=== PATIENT | male | born 1940 | race Caucasian/White ===

== ENCOUNTER 2018-04-24 10:27 | Outpatient (CLI) | payer MEDICARE, SELFPAY ==
[2018-04-24 13:06] LABS: Hemoglobin A1C 7.7 % (4.5-6.2)
[2018-04-24 13:08] LABS: CREATININE 1.26 mg/dL (0.70-1.30); Cholesterol 200 mg/dL (50-200); Estimated GFR 55.79 (mL/min/1.73m2); HDL Cholesterol 44 mg/dL (40-60); LDL CHOLESTEROL 150 mg/dL (<100); Potassium 4.9 mmol/L (3.5-5.1); Triglyceride 77 mg/dL (30-150)
== END 2018-04-24 10:47 ==
PROVIDERS: PCP Family Medicine; Visit Provider Family Medicine
DX: E11.9 Type 2 diabetes mellitus without complications (principal); I10 Essential (primary) hypertension; E78.5 Hyperlipidemia, unspecified; J06.9 Acute upper respiratory infection, unspecified
CPT/HCPCS: 36415; 80061; 83721; 82565; 83036; 84132

== ENCOUNTER 2018-09-27 09:24 | Outpatient (CLI) | payer MEDICARE, SELFPAY ==
[2018-09-27 13:11] LABS: Hemoglobin A1C 7.2 % (4.5-6.2)
== END 2018-09-27 09:44 ==
PROVIDERS: PCP Family Medicine; Visit Provider Family Medicine
DX: E11.9 Type 2 diabetes mellitus without complications (principal)
CPT/HCPCS: 36415; 83036

== ENCOUNTER 2019-04-18 11:40 | Outpatient (CLI) | payer MEDICARE, SELFPAY ==
[2019-04-18 13:47] LABS: TSH (W/Ref FT4) 1.33 uIU/mL (0.36-3.74); Vitamin B12 262 pg/mL (193-986)
[2019-04-21 11:53] LABS: Syphilis Serology (RPR) Negative (Negative)
== END 2019-04-18 12:00 ==
PROVIDERS: PCP Family Medicine; Visit Provider Family Medicine
DX: I10 Essential (primary) hypertension (principal); R41.89 Other symptoms and signs involving cognitive functions and awareness; R46.89 Other symptoms and signs involving appearance and behavior
CPT/HCPCS: 36415; 82607; 84443; 86592

== ENCOUNTER 2019-11-10 14:44 | Outpatient (CLI) | payer MEDICARE, OTHER, SELFPAY ==
--- NOTE | 2019-11-10 15:30 | DI.RAD_ITS ---
EXAM: XR TIB/FIB RT CLINICAL HISTORY: right leg and ankle pain since fall,m79.604,[id number].xxxa. TECHNIQUE: 2D digital imaging was performed. COMPARISON: No exams were available for comparison FINDINGS: BONES: No acute fracture is present. No bony destructive lesion is seen. Mild degenerative changes ar e seen at the knee. There is chondrocalcinosis at the femoral tibial joint. SOFT TISSUE: Vascular calcifications are seen in the soft tissues. There is soft tissue swelling avelino und the ankle. IMPRESSION: No acute fracture or dislocation. DATA REPOSITORY: RADIATION DOSE DELIVERED:
--- NOTE | 2019-11-10 15:30 | DI.RAD_ITS ---
EXAM: XR ANKLE RT COMPLETE CLINICAL HISTORY: right leg and ankle pain since fall. TECHNIQUE: 2D digital imaging was performed. COMPARISON: CR XR TIB/FIB RT from 11/10/2019 FINDINGS: BONES: No acute fracture or dislocation is present. There are enthesophytes at the Achilles insertio n site and the plantar fascia. JOINTS: The ankle mortise is normally aligned. SOFT TISSUE: Moderate swelling around the ankle. IMPRESSION: No acute fracture or dislocation. DATA REPOSITORY: RADIATION DOSE DELIVERED:
== END 2019-11-10 15:04 ==
PROVIDERS: PCP Family Medicine; Visit Provider Nurse Practitioner Family
DX: M79.604 Pain in right leg (principal); M25.571 Pain in right ankle and joints of right foot; M79.89 Other specified soft tissue disorders; W19.XXXA Unspecified fall, initial encounter; G45.9 Transient cerebral ischemic attack, unspecified
CPT/HCPCS: 73590; 73610

== ENCOUNTER 2020-01-26 13:15 | Outpatient (REF) | payer MEDICARE, OTHER, SELFPAY ==
[2020-01-26 13:47] LABS: Hemoglobin A1C 7.2 % (3.8-5.6)
[2020-01-26 13:49] LABS: CREATININE 1.25 mg/dL (0.70-1.30); Calculated LDL 137 mg/dL (<100); Cholesterol 199 mg/dL (<200); Estimated GFR 56.01 (mL/min/1.73m2); HDL Cholesterol 43 mg/dL (40-60); Potassium 4.3 mmol/L (3.5-5.1); Triglyceride 97 mg/dL (<150)
[2020-01-29 10:00] LABS: Vitamin B12 171 pg/mL (211-911)
[2020-01-31 13:12] LABS: Methylmalonic Acid 0.23 nmol/mL (<=0.40)
== END 2020-01-26 13:35 ==
LOC: LBN 13:15
PROVIDERS: PCP Family Medicine; Visit Provider Family Medicine
DX: E11.65 Type 2 diabetes mellitus with hyperglycemia (principal); E78.5 Hyperlipidemia, unspecified; E53.8 Deficiency of other specified B group vitamins
CPT/HCPCS: 80061; 80186; 82565; 82607; 83036; 84132

== ENCOUNTER 2020-11-10 08:58 | Outpatient (REF) | payer MEDICARE, OTHER, SELFPAY ==
[2020-11-10 14:32] LABS: Hemoglobin A1C 6.4 % (<5.7)
[2020-11-10 14:53] LABS: Anion Gap 10.1 mmol/L (3-11); BUN 22 mg/dL (7-18); CO2 26.9 mmol/L (21.0-32.0); CREATININE 1.2 mg/dL (0.70-1.30); Calcium 9.1 mg/dL (8.5-10.1); Calculated LDL 131 mg/dL (<100); Chloride 108 mmol/L (98-107); Cholesterol 192 mg/dL (<200); Estimated GFR 58.56 (mL/min/1.73m2); Glucose 122 mg/dL (74-106); HDL Cholesterol 47 mg/dL (40-60); Potassium 4.5 mmol/L (3.5-5.1); Sodium 145 mmol/L (136-145); Triglyceride 70 mg/dL (<150); Vitamin B12 162 pg/mL (193-986)
== END 2020-11-10 08:59 | disposition home or self-care (01) ==
LOC: LBN 08:58
PROVIDERS: PCP Family Medicine; Visit Provider Family Medicine
DX: E78.5 Hyperlipidemia, unspecified (principal); R73.9 Hyperglycemia, unspecified; D64.9 Anemia, unspecified; R41.3 Other amnesia
CPT/HCPCS: 80048; 80061; 82607; 83036

== ENCOUNTER 2021-07-05 13:05 | Emergency (ER) | payer MEDICARE, OTHER, SELFPAY ==
[2021-07-05 13:13] VITALS: BP 164/96; PULSE 99; RESP 18; O2SAT 99
--- NOTE | 2021-07-05 13:15 | RT.EKG_ITS ---
APPROVED REPORT Exam: Resting ECG Reason for Exam: AMS Patient Location: E HR:93 bpm ECG Measurements Heart Rate 93 AXIS TN 170 P 55 QRSd 124 QRS 51 QT 374 T -28 QTc 466 Conclusion Sinus rhythm...normal P axis, V-rate 60- 99 Right bundle branch block...QRSd>120, terminal axis(90,270) Inferior infarct, age indeterminate...Q>35mS, T neg, II III aVF Physician: no stemi, RBBB, no prior for comparison
[2021-07-05 13:16] VITALS: RESP 18
--- NOTE | 2021-07-05 13:30 | DI.CT_ITS ---
Exam(s) CT HEAD WO EXAM: CT HEAD WO CLINICAL HISTORY: ams. TECHNIQUE: Imaging Protocol: Axial computed tomography images with coronal and sagittal reformatted images were created and reviewed COMPARISON: No exams were available for comparison FINDINGS: There is moderate generalized cerebral atrophy. No evidence of acute intracranial hemorrhage, mass effect, or midline shift. The orbital structures are unremarkable. The temporal bone structures appear intact. Calvarium: Normal. Visualized Paranasal sinuses/Mastoids: Clear. IMPRESSION: No evidence of acute intracranial process. RADIATION DOSE DELIVERED: 864.99mGy.cm Total DLP 864.99mGy.cm Total DLP 40.22mGy CTDIvol DATA REPOSITORY: All CT scans at this facility are submitted to the National Radiology Data Registry (NRDR) Dose Index Registry (DIR) with the [employer] (ACR). RADIATION OPTIMIZATION: All CT scans at this facility use at least one of these dose optimization te chniques: automated exposure control; mA and/or kV adjustment per patient size (includes targeted exa ms where dose is matched to clinical indication); or iterative reconstruction.
[2021-07-05 13:41] LABS: Abs Immature Grans 0.02 10^3/uL (0.0-0.06); Absolute Basophil Count 0.04 10^3/uL (0.0-0.2); Absolute Eosinophil Count 0.04 10^3/uL (0.0-0.7); Absolute Lymphocyte Count 1.33 10^3/uL (1.2-3.4); Absolute Monocyte Count 0.44 10^3/uL (0.1-0.8); Absolute Neutrophil Count 3.55 10^3/uL (1.2-6.7); Basophils % 0.7; Eosinophils % 0.7; HCT 45.7 % (40.0-50.0); HGB 15.5 g/dL (13.5-17.5); Immature Grans % 0.4; Lymphocytes % 24.5; MCH 30.2 pg (27.0-33.0); MCHC 33.9 % (32.0-36.0); MCV 88.9 fL (80-95); MPV 9.9 fL (8.0-11.0); Monocytes % 8.1; Neutrophils % 65.6; Nucleated RBC 0 %; Platelet Count 185 10^3/uL (130-400); RBC 5.14 10^6/uL (4.36-5.78); RDW 12.3 % (11.8-14.1); RDW-SD 40.3 fL; WBC 5.42 10^3/uL (4.4-10.8)
[2021-07-05 13:43] LABS: Bilirubin Negative (Negative); Blood Negative (Negative); Clarity Clear (Clear); Glucose 100 mg/dL (Negative); Ketones Trace mg/dL (Negative); Leukocyte Esterase Negative (Negative); Nitrite Negative (Negative); pH 6.5 (5-8)
[2021-07-05 14:00] LABS: Bacteria Rare HPF (Negative); Crystals Negative HPF (Negative); Epithelial Cells Rare HPF (Negative); Mucus Moderate (Negative); RBC 0-2 HPF (0-2); WBC 0-2 HPF (0-5)
[2021-07-05 14:01] LABS: C & S Indicated? No; Casts 5-10 Hyaline LPF (Negative)
[2021-07-05 14:18] LABS: ALT 25 U/L (16-63); AST 18 U/L (15-37); Albumin 4.4 g/dL (3.4-5.0); Alkaline Phosphatase 74 U/L (46-116); Anion Gap 8.5 mmol/L (3-11); BUN 24 mg/dL (7-18); Bilirubin, Total 1.1 mg/dL (0.2-1.0); CO2 28.5 mmol/L (21.0-32.0); CREATININE 1.5 mg/dL (0.70-1.30); Calcium 9.8 mg/dL (8.5-10.1); Chloride 105 mmol/L (98-107); Estimated GFR 45.26 (mL/min/1.73m2); Glucose 160 mg/dL (74-106); Sodium 142 mmol/L (136-145); TSH (W/Ref FT4) 1.76 uIU/mL (0.36-3.74); Total Protein 7.3 g/dL (6.4-8.2); Troponin I < 50 ng/L (<or=60)
[2021-07-05] MEDS: Normal Saline 1,000 ML 1000 ML IV (14:58)
--- NOTE | 2021-07-05 14:59 | W.ED.GENAD ---
Discharge Plan Disposition Patient Disposition: HOME Condition: Stable Discharge Details Clinical Impression: Altered mental status Primary Care Provider: Jairo Degroot ED Provider: Nando Sorenson Home Meds and New Rx's Prescriptions: Continued tadalafil [Cialis] 20 mg tablet 10 - 20 mg PO DAILY PRN (Reason: sexual activity) Qty: 10 RF: 0 sildenafil (pulm.hypertension) 20 mg tablet 20 - 100 mg PO DAILY PRN (Reason: sexual activity) Qty: 30 RF: 5 aspirin [Aspir-81] 81 MG tablet,delayed release (DR/EC) 81 mg PO DAILY Qty: 90 RF: 3 cyanocobalamin (vitamin B-12) 1,000 mcg capsule 1,000 mcg PO DAILY Qty: 90 RF: 3 benazepril 10 mg tablet 10 mg PO DAILY Qty: 90 RF: 4 (DME) blood sugar diagnostic Strip 1 ea Miscellaneous DAILY Qty: 100 RF: 3 (DME) blood-glucose meter [[employer] Ultra2 Meter] Kit See Rx Instructions .ROUTE .MEDSUPPLY Qty: 1 RF: 0 (DME) lancets [OneTouch [employer] Lancets] 33 gauge misc 1 ea Miscellaneous DAILY Qty: 100 RF: 3 metformin 750 mg tablet extended release 24 hr 750 mg PO DAILY Qty: 90 RF: 4 simvastatin 10 mg tablet 10 mg PO HS Qty: 90 RF: 4 Discharge Instructions Instructions: Altered Mental Status (ED) Additional Instructions: Today at this time your laboratory values and CT imaging are all unremarkable for any obvious emergent process. Please watch for new or worsening symptoms and return to the ER for any concerns. Lastly, I strongly recommend reaching out to your primary care provider to discuss your ER visit, ongoing symptoms, need for outpatient reevaluation Discharge Data Discharge Date/Time-TO BE ENTERED AT DEPARTURE: 07/05/21 16:03 Medical Decision Making This is a 80-year-old gentleman who yesterday left his house without telling anyone, was [place] the state in a gas station after his car broke down. Apparently he has had progressive worsening memory impairment and mood swings but the was more atypical than baseline. The family states that they are concerned he may have a UTI which would explain his sporadic behavior. He lives at home with his significant other and does not wish to be hospitalized but is agreeable to a medical work-up. At this time he is at his baseline. He is pleasantly confused but any obvious focal neurodeficit. Given his presentation will obtain head CT we will also obtain a troponin and EKG and routine screening laboratory values. CT imaging of the brain is unremarkable Laboratory values do not reveal any obvious emergent process. No evidence of leukocytosis or anemia. Electrolytes are normal. Creatinine slightly worse at 1.5, given 1 L IV fluid. Troponin less than 50. Glucose 160 magnesium 2.0, urinalysis without evidence of infection Discussed work-up with patient and family member. They have no additional questions or concerns and are requesting discharge home. We did discuss the importance of contacting his primary care provider to discuss his ongoing symptoms and unusual behavior. We also discussed that observation admission at this time could be arranged given his altered mental status yesterday as well as the importance of pursuing outpatient MRI for further evaluation. A request was made that our care management team reach out to the patient's [id number] to help with potential outpatient resources. At time of discharge patient is at baseline mental status per family. He is awake, alert, pleasantly confused, without any questions or concerns. Strict discharge and return precautions were provided This documentation was generated using [employer] dictation system, please disregard any oddities of phrase or misspellings. Medical Records Medical records reviewed: Yes I reviewed the patient's medical records. Imaging Data Radiologic Study: Attestation: I personally reviewed and interpreted this imaging study as follows: Imaging: CT Scan Radiologist's impression: Exam(s) CT HEAD WO EXAM: CT HEAD WO CLINICAL HISTORY: ams. TECHNIQUE: Imaging Protocol: Axial computed tomography images with coronal and sagittal reformatted images were created and reviewed COMPARISON: No exams were available for comparison FINDINGS: There is moderate generalized cerebral atrophy. No evidence of acute intracranial hemorrhage, mass effect, or midline shift. The orbital structures are unremarkable. The temporal bone structures appear intact. Calvarium: Normal. Visualized Paranasal sinuses/Mastoids: Clear. IMPRESSION: No evidence of acute intracranial process. Lab Data Lab results reviewed: Yes I reviewed the patient's lab results. Labs: Laboratory Tests Range/Units 07/05/21 07/05/21 07/05/21 13:20 13:20 13:37 WBC (4.4-10.8) 10^3/uL 5.42 RBC (4.36-5.78) 10^6/uL 5.14 Hgb (13.5-17.5) g/dL 15.5 Hct (40.0-50.0) % 45.7 MCV (80-95) fL 88.9 MCH (27.0-33.0) pg 30.2 MCHC (32.0-36.0) % 33.9 RDW (11.8-14.1) % 12.3 Plt Count (130-400) 10^3/uL 185 MPV (8.0-11.0) fL 9.9 Immature Gran % 0.4 Neutrophils % 65.6 Lymphocytes % 24.5 Monocytes % 8.1 Eosinophils % 0.7 Basophils % 0.7 Nucleated RBC % % 0 Absolute Neutrophils (1.2-6.7) 10^3/uL 3.55 Absolute Lymphocytes (1.2-3.4) 10^3/uL 1.33 Absolute Monocytes (0.1-0.8) 10^3/uL 0.44 Absolute Eosinophils (0.0-0.7) 10^3/uL 0.04 Absolute Basophils (0.0-0.2) 10^3/uL 0.04 Sodium (136-145) mmol/L 142 Potassium (3.5-5.1) mmol/L 4.0 Chloride (98-107) mmol/L 105 Carbon Dioxide (21.0-32.0) mmol/L 28.5 Anion Gap (3-11) mmol/L 8.5 BUN (7-18) mg/dL 24 H Creatinine (0.70-1.30) mg/dL 1.5 H Estimated GFR/1.73 m2 (mL/min/1.73m2) 45.26 Glucose (74-106) mg/dL 160 H Calcium (8.5-10.1) mg/dL 9.8 Magnesium (1.8-2.4) mg/dL 2.0 Total Bilirubin (0.2-1.0) mg/dL 1.1 H AST (15-37) U/L 18 ALT (16-63) U/L 25 Alkaline Phosphatase (46-116) U/L 74 Troponin I (<or=60) ng/L < 50 Total Protein (6.4-8.2) g/dL 7.3 Albumin (3.4-5.0) g/dL 4.4 TSH (0.36-3.74) uIU/mL 1.76 Urine Color (Yellow) Yellow Urine Clarity (Clear) Clear Urine pH (5-8) 6.5 Ur Specific [place] (1.005-1.025) 1.020 Urine Protein (Negative) mg/dL Trace H Urine Ketones (Negative) mg/dL Trace H Urine Blood (Negative) Negative Urine Nitrite (Negative) Negative Urine Bilirubin (Negative) Negative Urine Urobilinogen (Up TO 0.2) EU/dL 1.0 H Ur Leukocyte Esterase (Negative) Negative Urine RBC (0-2) HPF 0-2 Urine WBC (0-5) HPF 0-2 Ur Epithelial Cells (Negative) HPF Rare Urine Crystals (Negative) HPF Negative Urine Bacteria (Negative) HPF Rare Urine Casts (Negative) LPF 5-10 Hyaline Urine Mucus (Negative) Moderate Ur Culture Indicated? No Urine Glucose (Negative) mg/dL 100 Range/Units 07/05/21 16:21 WBC (4.4-10.8) 10^3/uL RBC (4.36-5.78) 10^6/uL Hgb (13.5-17.5) g/dL Hct (40.0-50.0) % MCV (80-95) fL MCH (27.0-33.0) pg MCHC (32.0-36.0) % RDW (11.8-14.1) % Plt Count (130-400) 10^3/uL MPV (8.0-11.0) fL Immature Gran % Neutrophils % Lymphocytes % Monocytes % Eosinophils % Basophils % Nucleated RBC % % Absolute Neutrophils (1.2-6.7) 10^3/uL Absolute Lymphocytes (1.2-3.4) 10^3/uL Absolute Monocytes (0.1-0.8) 10^3/uL Absolute Eosinophils (0.0-0.7) 10^3/uL Absolute Basophils (0.0-0.2) 10^3/uL Sodium (136-145) mmol/L Potassium (3.5-5.1) mmol/L Chloride (98-107) mmol/L Carbon Dioxide (21.0-32.0) mmol/L Anion Gap (3-11) mmol/L BUN (7-18) mg/dL Creatinine (0.70-1.30) mg/dL Estimated GFR/1.73 m2 (mL/min/1.73m2) Glucose (74-106) mg/dL Calcium (8.5-10.1) mg/dL Magnesium (1.8-2.4) mg/dL Total Bilirubin (0.2-1.0) mg/dL AST (15-37) U/L ALT (16-63) U/L Alkaline Phosphatase (46-116) U/L Troponin I (<or=60) ng/L Cancelled Total Protein (6.4-8.2) g/dL Albumin (3.4-5.0) g/dL TSH (0.36-3.74) uIU/mL Urine Color (Yellow) Urine Clarity (Clear) Urine pH (5-8) Ur Specific [place] (1.005-1.025) Urine Protein (Negative) mg/dL Urine Ketones (Negative) mg/dL Urine Blood (Negative) Urine Nitrite (Negative) Urine Bilirubin (Negative) Urine Urobilinogen (Up TO 0.2) EU/dL Ur Leukocyte Esterase (Negative) Urine RBC (0-2) HPF Urine WBC (0-5) HPF Ur Epithelial Cells (Negative) HPF Urine Crystals (Negative) HPF Urine Bacteria (Negative) HPF Urine Casts (Negative) LPF Urine Mucus (Negative) Ur Culture Indicated? Urine Glucose (Negative) mg/dL ECG Data Attestation: I personally reviewed and interpreted this ECG (s) as follows: Interpretation: Please see official report by Dr. Nelson. Sinus rhythm, ventricular rate of 93. Right bundle branch block. No STEMI HPI General Mode of arrival: ambulatory. Date/Time Provider Initiated Documentation: 07/05/21 13:20. Limitations to Documentation: no limitations. Information obtained by: patient and family (Daughter in law). HPI Narrative: This is a 80-year-old gentleman, with past medical history of memory impairment, diabetes, high retention, chronic low back pain, presenting to the ER with his [id number] for evaluation of altered mental status. Apparently when the family came home yesterday there was a note stating that he was taking the dog for a ride however the dog was home and the patient did not come home last night. He was subsequently found today across [facility] at a gas station after his vehicle broke down, family contacted and he was brought back home. His [id number]-ser reports that he is at baseline mental status now but questions if given his increase confusion if he potentially has a UT. Patient is pleasant, has no acute concerns or complaints. Denies recent illness or trauma. Denies headache, visual changes, neck pain, chest pain, shortness of breath, fever, abdominal pain, nausea, vomiting, change in bowel or bladder function, pain or swelling in his extremities. He is unable to really give me any details regarding what happened over the past 24 hours. Family reports that his overall mental status has declined over the past year, he has had some increased agitation and mood swings as well. Denies any focal deficit or weakness. Related Data Home Medications Medication Instructions Recorded Confirmed aspirin [Aspir-81] 81 mg PO DAILY #90 tab-cap 02/17/13 04/30/20 tadalafil 20 mg tablet 10 - 20 mg PO DAILY PRN #10 tab-cap 09/27/18 04/30/20 sildenafil (pulm.hypertension) 20 20 - 100 mg PO DAILY PRN #30 tab 04/18/19 04/30/20 mg tablet cyanocobalamin (vitamin B-12) 1,000 mcg PO DAILY #90 cap 01/29/20 04/30/20 1,000 mcg capsule benazepril 10 mg tablet 10 mg PO DAILY #90 tab-cap 07/12/20 blood sugar diagnostic #100 strip 07/12/20 blood-glucose meter #1 ea 07/12/20 lancets 33 gauge #100 ea 07/12/20 metformin 750 mg tablet,extended 750 mg PO DAILY #90 tab-cap 07/12/20 release 24 hr simvastatin 10 mg tablet 10 mg PO HS #90 tab-cap 07/12/20 Previous Rx's Medication Instructions Recorded tadalafil 20 mg tablet 10 - 20 mg PO DAILY PRN #10 tab-cap 09/27/18 sildenafil (pulm.hypertension) 20 20 - 100 mg PO DAILY PRN #30 tab 04/18/19 mg tablet cyanocobalamin (vitamin B-12) 1,000 mcg PO DAILY #90 cap 01/29/20 1,000 mcg capsule benazepril 10 mg tablet 10 mg PO DAILY #90 tab-cap 07/12/20 blood sugar diagnostic #100 strip 07/12/20 blood-glucose meter #1 ea 07/12/20 lancets 33 gauge #100 ea 07/12/20 metformin 750 mg tablet,extended 750 mg PO DAILY #90 tab-cap 07/12/20 release 24 hr simvastatin 10 mg tablet 10 mg PO HS #90 tab-cap 07/12/20 Allergies Allergy/AdvReac Type Severity Reaction Status Date / Time No Known Allergies Allergy Verified 07/05/21 13:15 General Stated Complaint: AMS/LOC CHENTE: 2 Review of Systems Constitutional Constitutional: Denies fatigue, Denies fever(s) and Denies headache(s) Eyes Eyes: Denies change in vision ENT Ears, Nose, Mouth, and Throat: Denies headache(s) and Denies neck pain Cardiovascular Cardiovascular: Denies chest pain and Denies dyspnea Respiratory Respiratory: Denies cough and Denies dyspnea Gastrointestinal Gastrointestinal: Denies abdominal pain, Denies nausea and Denies vomiting Genitourinary Genitourinary: Denies dysuria Musculoskeletal Musculoskeletal: Denies neck pain Integumentary/Breasts Skin/Breast: Denies rash Neurologic Neurologic: Denies headache(s) Psychiatric Psychiatric: Reports confusion (Baseline per family) Endocrine Endocrine: Denies fatigue PFSH All Active Problems Altered mental status (Acute) Low serum vitamin B12 (Acute) Memory impairment (Acute) History of lumbar laminectomy (Acute 08/20/14) Status post rotator cuff repair (Acute) Diabetes mellitus (Chronic) Type 2 diabetes mellitus (Acute 02/11/13) Dysphagia (Acute 08/20/14) intermittent for years [facility] eval, neg EGD and Ba swallow Essential hypertension (Acute 02/11/13) Hyperlipidemia (Acute 08/18/13) Low back pain (Acute 02/11/13) lumbar laminectomy 1959' Colon cancer screening (Acute) Surgical History Colonoscopy - MAC 07/17/14 PARTIAL LAMINECTOMY (~1962) L3-4 DISCS Rotator Cuff Repair RIGHT Sigmoidoscopy (~06/2007) Family History FAMILY HISTORY Essential hypertension Personal history of malignant neoplasm [place] Cerebral infarction Cerebral artery occlusion Mother Essential hypertension Stroke Skin cancer Father Essential hypertension Asthma Sister , 72 Breast cancer Brother No problems noted. Maternal Grandfather Alcohol abuse Heart disease Paternal Grandfather Alcohol abuse Maternal Grandmother Diabetes Heart disease Paternal Grandmother No problems noted. Son No problems noted. Son No problems noted. Son No problems noted. Social History Smoking/Tobacco Use Status: Former Tobacco Use Tobacco: How many years used: 20 Second Hand Exposure: Yes Smoking risk assessment performed?: Yes Alcohol Intake: current Alcohol Intake frequency: holidays/special occasions only Alcohol type: wine Drug use: Never Substance use type: does not use Caregiver/Support person: No Household members: spouse Housing: house Communication Needs: None Do you need help understanding health information?: Rarely Pets and animals: Yes Pets and animals: cat(s) and dog(s) Sexually active: No Do you think of yourself as: straight/heterosexual Current gender identity: male What is your relationship status?: How often do you talk on the phone with friends or family?: once per week How often do you get together with friends or relatives?: once per week How often do you attend rastafarian or episcopal services?: 4 or more times per year Do you belong to any clubs or organized social groups?: no Panel score (0-1 are the most socially isolated patients): 2 What type of physical activity do you participate in: weight lifting Duration: 15-30 minutes/day Frequency: 5-6 times per week Johana/Pentecostalism: Anabaptist Special johana needs: No Seatbelt use: always Drive intox or ride w/intox 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 Additional Social history: Recent increase in AMS and agitation Exam Const General: cooperative, healthy appearing, comfortable and no acute distress Orientation: alert, awake, oriented to person, oriented to place and confused (Unaware of date or the president) Other: Mental baseline status per family [facility] Head: normal to inspection, normocephalic and atraumatic Face and sinus: normal facial exam Mouth: moist mucous membranes Throat: posterior oropharynx normal Eyes General: appearance normal, both eyes and all related structures Conjunctivae: conjunctivae normal Neck Neck: normal visual inspection, full ROM, no meningeal signs, trachea midline, supple and nontender Resp Effort & Inspection: normal respiratory effort and able to speak in complete sentences Auscultation: not clear to auscultation bilaterally Cardio Rate: regular rate Rhythm: regular rhythm GI Palpation: soft, not firm, no guarding, no pulsatile masses and nontender Back/Spine/Pelvis Back: no CVA tenderness and No back tenderness Skin General skin exam: no rashes or lesions noted Neuro General: patient alert, patient awake, moves all extremities and no focal motor deficits Cranial Nerves: CN's II-XI intact bilaterally Cognition: normal cognition Speech: speech normal Gait: normal gait Motor: muscle tone normal throughout, strength 5/5 throughout, no pronator drift, no movement abnormalities noted and no fasciculations Sensory Exam: no sensory deficits noted Coordination: [id number] test normal and Does not sway with eyes open Extrem General: normal to inspection, full ROM, capillary refill normal, no pedal edema and no calf tenderness Psych Appearance: grossly normal Mental Status: mental status grossly normal Course Vital Signs Vital signs: Vital Signs Pulse 99 H 07/05/21 13:13 Respiratory Rate 18 07/05/21 13:13 Blood Pressure 164/96 H 07/05/21 13:13 Pulse Oximetry 99 07/05/21 13:13 Pulse 99 H 07/05/21 13:13 Respiratory Rate 18 07/05/21 13:16 Respiratory Effort Non-Labored 07/05/21 13:16 Respiratory Depth Normal 07/05/21 13:16 Respiratory Pattern Normal 07/05/21 13:16 Blood Pressure 164/96 H 07/05/21 13:13 Pulse Oximetry 99 07/05/21 13:13 Oxygen Delivery Method Room Air 07/05/21 13:13 Oxygen Flow Rate 0 07/05/21 13:13 Pain Level 0 07/05/21 13:13 Lab/Test Results Lab/Test Results: Laboratory Tests Range/Units 07/05/21 07/05/21 07/05/21 13:20 13:20 13:37 WBC (4.4-10.8) 10^3/uL 5.42 RBC (4.36-5.78) 10^6/uL 5.14 Hgb (13.5-17.5) g/dL 15.5 Hct (40.0-50.0) % 45.7 MCV (80-95) fL 88.9 MCH (27.0-33.0) pg 30.2 MCHC (32.0-36.0) % 33.9 RDW (11.8-14.1) % 12.3 Plt Count (130-400) 10^3/uL 185 MPV (8.0-11.0) fL 9.9 Immature Gran % 0.4 Neutrophils % 65.6 Lymphocytes % 24.5 Monocytes % 8.1 Eosinophils % 0.7 Basophils % 0.7 Nucleated RBC % % 0 Absolute Neutrophils (1.2-6.7) 10^3/uL 3.55 Absolute Lymphocytes (1.2-3.4) 10^3/uL 1.33 Absolute Monocytes (0.1-0.8) 10^3/uL 0.44 Absolute Eosinophils (0.0-0.7) 10^3/uL 0.04 Absolute Basophils (0.0-0.2) 10^3/uL 0.04 Sodium (136-145) mmol/L 142 Potassium (3.5-5.1) mmol/L 4.0 Chloride (98-107) mmol/L 105 Carbon Dioxide (21.0-32.0) mmol/L 28.5 Anion Gap (3-11) mmol/L 8.5 BUN (7-18) mg/dL 24 H Creatinine (0.70-1.30) mg/dL 1.5 H Estimated GFR/1.73 m2 (mL/min/1.73m2) 45.26 Glucose (74-106) mg/dL 160 H Calcium (8.5-10.1) mg/dL 9.8 Magnesium (1.8-2.4) mg/dL 2.0 Total Bilirubin (0.2-1.0) mg/dL 1.1 H AST (15-37) U/L 18 ALT (16-63) U/L 25 Alkaline Phosphatase (46-116) U/L 74 Troponin I (<or=60) ng/L < 50 Total Protein (6.4-8.2) g/dL 7.3 Albumin (3.4-5.0) g/dL 4.4 TSH (0.36-3.74) uIU/mL 1.76 Urine Color (Yellow) Yellow Urine Clarity (Clear) Clear Urine pH (5-8) 6.5 Ur Specific [place] (1.005-1.025) 1.020 Urine Protein (Negative) mg/dL Trace H Urine Ketones (Negative) mg/dL Trace H Urine Blood (Negative) Negative Urine Nitrite (Negative) Negative Urine Bilirubin (Negative) Negative Urine Urobilinogen (Up TO 0.2) EU/dL 1.0 H Ur Leukocyte Esterase (Negative) Negative Urine RBC (0-2) HPF 0-2 Urine WBC (0-5) HPF 0-2 Ur Epithelial Cells (Negative) HPF Rare Urine Crystals (Negative) HPF Negative Urine Bacteria (Negative) HPF Rare Urine Casts (Negative) LPF 5-10 Hyaline Urine Mucus (Negative) Moderate Ur Culture Indicated? No Urine Glucose (Negative) mg/dL 100
== END 2021-07-05 16:03 | disposition home or self-care (01) ==
PROVIDERS: Emergency Provider Physician Assistant; PCP Family Medicine
DX: R41.82 Altered mental status, unspecified (principal); E11.9 Type 2 diabetes mellitus without complications; R79.89 Other specified abnormal findings of blood chemistry
CPT/HCPCS: 36415; 36416; 80053; 82962; 93005; 96360; 99284; 70450; 81003; 81015; 83735; 84443; 84484; 85025; 93010

== ENCOUNTER 2021-07-18 14:41 | Outpatient (REF) | payer MEDICARE, OTHER, SELFPAY ==
[2021-07-18 13:40] LABS: Hemoglobin A1C 6.1 % (<5.7)
[2021-07-18 13:50] LABS: COMMENT (LAB VIEW ONLY) 70.86 mg/dL; Microalb ug/mg Crea 7.1 ug/mg Cr
[2021-07-18 14:06] LABS: Anion Gap 7.7 mmol/L (3-11); BUN 18 mg/dL (7-18); CO2 28.3 mmol/L (21.0-32.0); CREATININE 1.3 mg/dL (0.70-1.30); Calculated LDL 124 mg/dL (<100); Chloride 106 mmol/L (98-107); Cholesterol 188 mg/dL (<200); Estimated GFR 53.39 (mL/min/1.73m2); Glucose 106 mg/dL (74-106); HDL Cholesterol 50 mg/dL (40-60); Potassium 4.3 mmol/L (3.5-5.1); Sodium 142 mmol/L (136-145); Triglyceride 74 mg/dL (<150); Vitamin B12 478 pg/mL (193-986)
== END 2021-07-18 14:42 | disposition home or self-care (01) ==
LOC: LBN 14:41
PROVIDERS: PCP Family Medicine; Visit Provider Family Medicine
DX: E11.9 Type 2 diabetes mellitus without complications (principal); E53.8 Deficiency of other specified B group vitamins; E78.5 Hyperlipidemia, unspecified; Z00.00 Encounter for general adult medical examination without abnormal findings
CPT/HCPCS: 80048; 80061; 82043; 82570; 82607; 83036

== ENCOUNTER 2022-06-08 23:16 | Outpatient (REF) | payer MEDICARE, OTHER, SELFPAY ==
[2022-06-08 21:50] LABS: ALT 21 U/L (16-63); AST 25 U/L (15-37); Albumin 4.9 g/dL (3.4-5.0); Alkaline Phosphatase 88 U/L (46-116); Anion Gap 5.5 mmol/L (3-11); BUN 30 mg/dL (7-18); Bilirubin, Total 1.1 mg/dL (0.2-1.0); CO2 30.5 mmol/L (21.0-32.0); CREATININE 1.6 mg/dL (0.70-1.30); Calcium 9.8 mg/dL (8.5-10.1); Chloride 103 mmol/L (98-107); Estimated GFR 43.56 (mL/min/1.73m2); Glucose 130 mg/dL (74-106); Potassium 4.6 mmol/L (3.5-5.1); Sodium 139 mmol/L (136-145); Total Protein 7.4 g/dL (6.4-8.2)
[2022-06-08 21:51] LABS: Hemoglobin A1C 5.7 % (<5.7)
== END 2022-06-08 23:17 | disposition home or self-care (01) ==
LOC: LBN 23:16
PROVIDERS: PCP Family Medicine; Visit Provider Family Medicine
DX: I10 Essential (primary) hypertension (principal); Z00.00 Encounter for general adult medical examination without abnormal findings; R73.01 Impaired fasting glucose
CPT/HCPCS: 80053; 83036

== ENCOUNTER 2022-09-27 16:43 | Outpatient (REF) | payer MEDICARE, SELFPAY ==
[2022-09-27 13:02] LABS: Abs Immature Grans 0.01 10^3/uL (0.0-0.06); Absolute Basophil Count 0.03 10^3/uL (0.0-0.2); Absolute Eosinophil Count 0.09 10^3/uL (0.0-0.7); Absolute Lymphocyte Count 1.31 10^3/uL (1.2-3.4); Absolute Monocyte Count 0.44 10^3/uL (0.1-0.8); Absolute Neutrophil Count 3.11 10^3/uL (1.2-6.7); Basophils % 0.6; Eosinophils % 1.8; HCT 40.1 % (40.0-50.0); HGB 13.8 g/dL (13.5-17.5); Immature Grans % 0.2; Lymphocytes % 26.3; MCH 30.9 pg (27.0-33.0); MCHC 34.4 % (32.0-36.0); MCV 90 fL (80-95); MPV 10.9 fL (8.0-11.0); Monocytes % 8.8; Neutrophils % 62.3; Platelet Count 152 10^3/uL (130-400); RBC 4.47 10^6/uL (4.36-5.78); RDW 12.7 % (11.8-14.1); RDW-SD 41.5 fL; WBC 4.99 10^3/uL (4.4-10.8)
[2022-09-27 13:05] LABS: PROTEIN 7.3 mg/dL (0.0-11.9)
[2022-09-27 13:28] LABS: Vitamin B12 500 pg/mL (193-986)
[2022-09-28 09:48] LABS: ALT 18 U/L (16-63); AST 21 U/L (15-37); Alkaline Phosphatase 67 U/L (46-116); Anion Gap 7.1 mmol/L (3-11); BUN 18 mg/dL (7-18); Bilirubin, Total 1.1 mg/dL (0.2-1.0); CO2 30.9 mmol/L (21.0-32.0); CREATININE 1.3 mg/dL (0.70-1.30); Calcium 9.6 mg/dL (8.5-10.1); Chloride 109 mmol/L (98-107); Estimated GFR 55.53 (mL/min/1.73m2); Glucose 85 mg/dL (74-106); Potassium 4.5 mmol/L (3.5-5.1); Sodium 147 mmol/L (136-145); Total Protein 6.1 g/dL (6.4-8.2)
== END 2022-09-27 16:44 | disposition home or self-care (01) ==
LOC: LBN 16:43
PROVIDERS: PCP Family Medicine; Visit Provider Family Medicine
DX: N18.32 Chronic kidney disease, stage 3b (principal); G30.1 Alzheimer's disease with late onset; F02.80 Dementia in other diseases classified elsewhere, unspecified severity, without behavioral disturbance, psychotic disturbance, mood disturbance, and anxiety
CPT/HCPCS: 80053; 82607; 84156; 85025

== ENCOUNTER 2023-01-01 15:24 | Outpatient (REF) | payer MEDICARE, SELFPAY ==
[2023-01-02 17:25] LABS: PSA, Diagnostic 11.8 ng/mL (<=6.5)
== END 2023-01-01 15:25 | disposition home or self-care (01) ==
LOC: LBN 15:24
PROVIDERS: PCP Nurse Practitioner Family; Visit Provider Nurse Practitioner Family
DX: R32 Unspecified urinary incontinence (principal)
CPT/HCPCS: 84153

== ENCOUNTER 2023-01-11 01:52 | Outpatient (CLI) | payer MEDICARE, OTHER, SELFPAY ==
--- NOTE | 2023-01-11 07:30 | DI.US_ITS ---
Exam(s) US RENAL EXAM: US RENAL CLINICAL HISTORY: increasing urinaryincontinence,kidney disease,n18.32,r32. TECHNIQUE: Madison scale, color and spectral Doppler were used. COMPARISON: No exams were available for comparison FINDINGS: Renal size in cm: Right: 9.6. Left: 9.8. Echogenicity: Normal. Hydronephrosis: No. Cyst or mass: There are bilateral simple renal cysts. The largest on the right measures 1.2 cm. The largest on the left measures 1.5 x 1.7 x 1.5 cm. No follow-up is recommended. Nephrolithiasis: No. Other findings: None. Bladder:There is mild thickening of the wall of the urinary bladder which may reflect chronic bladder outlet obstruction. Cystitis cannot be excluded. This may also be due to incomplete distension of the urinary bladder. Ureteral jets: Right: Visualized and unremarkable. Left: Visualized and unremarkable. Prevoid vol:80 cc Postvoid vol:62 cc Prostate: 42 cc Renal color flow: Symmetric and within normal limits. IMPRESSION: 1. Enlarged prostate gland. 2. Moderate size postvoid urinary bladder volume. Mild thickening of the wall of the urinary bladder . This may be due to chronic bladder outlet obstruction. Cystitis or incomplete distension of the u rinary bladder cannot be excluded. 3. Simple bilateral renal cysts. DATA REPOSITORY:
== END 2023-01-11 02:12 ==
PROVIDERS: PCP Nurse Practitioner Family; Visit Provider Nurse Practitioner Family
DX: N18.32 Chronic kidney disease, stage 3b (principal); R93.41 Abnormal radiologic findings on diagnostic imaging of renal pelvis, ureter, or bladder; N42.9 Disorder of prostate, unspecified
CPT/HCPCS: 76770

== ENCOUNTER → 2023-01-18 12:33 | Outpatient (BNVA) | payer MEDICARE, OTHER, SELFPAY | PROVIDERS: PCP Nurse Practitioner Family; Referring Provider Nurse Practitioner Family; Visit Provider Nurse Practitioner Adult Health | DX: G30.1 Alzheimer's disease with late onset (principal); F02.80 Dementia in other diseases classified elsewhere, unspecified severity, without behavioral disturbance, psychotic disturbance, mood disturbance, and anxiety; I12.9 Hypertensive chronic kidney disease with stage 1 through stage 4 chronic kidney disease, or unspecified chronic kidney disease; N18.30 Chronic kidney disease, stage 3 unspecified | CPT/HCPCS: 99204; 99215 ==

== ENCOUNTER → 2023-02-13 10:59 | Outpatient (BNVA) | payer MEDICARE, SELFPAY | PROVIDERS: PCP Nurse Practitioner Family; Referring Provider Nurse Practitioner Family; Visit Provider Nurse Practitioner Gerontology | DX: R32 Unspecified urinary incontinence (principal); R97.20 Elevated prostate specific antigen [PSA]; I12.9 Hypertensive chronic kidney disease with stage 1 through stage 4 chronic kidney disease, or unspecified chronic kidney disease; N18.9 Chronic kidney disease, unspecified | CPT/HCPCS: 36415; 51798; 99214 ==

== ENCOUNTER 2023-02-13 12:11 | Outpatient (REF) | payer MEDICARE, SELFPAY ==
[2023-02-13 12:59] LABS: BUN 31 mg/dL (7-18); CREATININE 1.4 mg/dL (0.70-1.30); Estimated GFR 50.81 (mL/min/1.73m2)
[2023-02-13 22:53] LABS: PSA, Diagnostic 14.1 ng/mL (<=6.5)
== END 2023-02-13 12:12 | disposition home or self-care (01) ==
LOC: LBN 12:11
PROVIDERS: PCP Nurse Practitioner Family; Visit Provider Nurse Practitioner Gerontology
DX: I10 Essential (primary) hypertension (principal); N18.32 Chronic kidney disease, stage 3b; R32 Unspecified urinary incontinence; R97.20 Elevated prostate specific antigen [PSA]
CPT/HCPCS: 84520; 82565; 84153

== ENCOUNTER → 2023-02-20 08:31 | Outpatient (BNVA) | payer MEDICARE, SELFPAY | PROVIDERS: PCP Nurse Practitioner Family; Referring Provider Nurse Practitioner Family; Visit Provider Nurse Practitioner Adult Health | DX: G30.9 Alzheimer's disease, unspecified (principal); F02.80 Dementia in other diseases classified elsewhere, unspecified severity, without behavioral disturbance, psychotic disturbance, mood disturbance, and anxiety; I12.9 Hypertensive chronic kidney disease with stage 1 through stage 4 chronic kidney disease, or unspecified chronic kidney disease; N18.30 Chronic kidney disease, stage 3 unspecified | CPT/HCPCS: 99214 ==

== ENCOUNTER → 2023-03-15 03:08 | Outpatient (CLI) | payer MEDICARE, SELFPAY ==
--- NOTE | 2023-03-15 08:00 | DI.MRI_ITS ---
Exam(s) MR BRAIN WO EXAM: MR BRAIN WO CLINICAL HISTORY: memory decline,f02.80,g30.1,alzheimers type dementia TECHNIQUE: Multiplanar multisequence MRI of the brain was performed. COMPARISON: CT CT HEAD WO from 07/05/2021 FINDINGS: The examination is limited due to patient motion artifact. VENTRICLES AND EXTRA AXIAL SPACES: Normal in size and morphology for the patient's age. MIDLINE SHIFT: None. CEREBRAL PARENCHYMA: No focus of restricted diffusion to suggest acute infarct. No space-occupying le loreto identified. There are areas of hyperintense signal seen in the white matter on the T2 and FLAIR images consistent with small vessel ischemic disease. HEMORRHAGE: None. BRAINSTEM/CEREBELLUM: Normal. CALVARIUM: Normal. VISUALIZED PARANASAL SINUSES/MASTOIDS:Clear. LITTLE TRAVERSE OF [place]: Normal flow void. PITUITARY GLAND: Unremarkable. OTHER FINDINGS: None. IMPRESSION: 1. The examination is limited due to patient motion artifact. 2. Age-related cerebral atrophy and small vessel ischemic disease. 3. There is no evidence of an acute infarct. DATA REPOSITORY:
== END ==
PROVIDERS: PCP Nurse Practitioner Family; Visit Provider Nurse Practitioner Adult Health
DX: F02.80 Dementia in other diseases classified elsewhere, unspecified severity, without behavioral disturbance, psychotic disturbance, mood disturbance, and anxiety (principal); G30.1 Alzheimer's disease with late onset
CPT/HCPCS: 70551

== ENCOUNTER → 2023-03-27 11:05 | Outpatient (BNVA) | payer MEDICARE, SELFPAY | PROVIDERS: PCP Nurse Practitioner Family; Referring Provider Nurse Practitioner Family; Visit Provider Nurse Practitioner Gerontology | DX: R97.20 Elevated prostate specific antigen [PSA] (principal); I12.9 Hypertensive chronic kidney disease with stage 1 through stage 4 chronic kidney disease, or unspecified chronic kidney disease; N18.9 Chronic kidney disease, unspecified | CPT/HCPCS: 99214 ==

== ENCOUNTER → 2023-04-16 14:57 | Outpatient (BNVA) | payer MEDICARE, SELFPAY | PROVIDERS: PCP Nurse Practitioner Family; Visit Provider Urology | DX: R97.20 Elevated prostate specific antigen [PSA] (principal) | CPT/HCPCS: 55700; 76942 ==

== ENCOUNTER 2023-04-16 16:54 | Outpatient (REF) | payer MEDICARE, SELFPAY ==
--- NOTE | 2023-04-16 15:20 | PROST_PTH ---
PATIENT: Leonard Stevens LOC: [facility] U#:[id number] AGE/SX: 82/M ROOM: RE04/16/[address]: Michael Salgado MD : [id number] BED: DIS: 04/16/2023 SPEC #: [id number] RECD: 04/16/23 17:27 STATUS: MADI RE #: [id number] CHANDU: 04/16/23 15:[address]: Michael Salgado DEPT: Surgical Specimen RECD BY: Erma Samuels ENTERED: 04/16/23 17:29 SP TYPE: PROST OTHR DR: Jake Montenegro DNP Tissues: 1 - PROSTATE NEEDLE BIOPSY 2 - PROSTATE NEEDLE BIOPSY 3 - PROSTATE NEEDLE BIOPSY 4 - PROSTATE NEEDLE BIOPSY 5 - PROSTATE NEEDLE BIOPSY 6 - PROSTATE NEEDLE BIOPSY 7 - PROSTATE NEEDLE BIOPSY 8 - PROSTATE NEEDLE BIOPSY 9 - PROSTATE NEEDLE BIOPSY 10 - PROSTATE NEEDLE BIOPSY 11 - PROSTATE NEEDLE BIOPSY 12 - PROSTATE NEEDLE BIOPSY Procedures: GROSS AND MICRO LEVEL 4 IMMUNOPEROXIDASE STAIN Comments: [id number]
== END 2023-04-16 16:55 | disposition home or self-care (01) ==
LOC: LBN 16:54
PROVIDERS: PCP Nurse Practitioner Family; Visit Provider Urology
DX: C61 Malignant neoplasm of prostate (principal)
CPT/HCPCS: 88305; 88361

== ENCOUNTER → 2023-05-08 14:56 | Outpatient (BNVA) | payer MEDICARE, SELFPAY | PROVIDERS: PCP Nurse Practitioner Family; Visit Provider Urology | DX: C61 Malignant neoplasm of prostate (principal) | CPT/HCPCS: 99215; G2212 ==

== ENCOUNTER → 2023-05-23 02:42 | Outpatient (CLI) | payer MEDICARE, SELFPAY ==
--- NOTE | 2023-05-23 07:30 | DI.NM_ITS ---
Exam(s) NM BONE SCAN WHOLE BODY GRP EXAM: NM BONE SCAN WHOLE BODY GRP CLINICAL HISTORY: prostate ca,C61,? mets. TECHNIQUE: Injected Dose: 25 mCi Tc-99m MDP Delayed Images: 2-3 hours. COMPARISON: CR XR TIB/FIB RT from 11/10/2019 CR XR ANKLE RT COMPLETE from 11/10/[address] HEAD WO from 07/05/2021 FINDINGS: Symmetric axial uptake. Bilateral renal excretion is identified. No focal area of intense suspicious uptake is seen. There was an area of increased radiotracer uptake seen on the posterior view overlyin g the left proximal femur which does not persist on repeat focused imaging. No abnormal radiotracer uptake is seen to suggest metastatic disease. IMPRESSION: 1. No evidence of metastatic disease. DATA REPOSITORY:
== END ==
PROVIDERS: PCP Nurse Practitioner Family; Visit Provider Urology
DX: C61 Malignant neoplasm of prostate (principal)
CPT/HCPCS: 78306

== ENCOUNTER → 2023-05-29 15:08 | Outpatient (BNVA) | payer MEDICARE, SELFPAY | PROVIDERS: PCP Nurse Practitioner Family; Referring Provider Nurse Practitioner Family; Visit Provider Urology | DX: C61 Malignant neoplasm of prostate (principal) | CPT/HCPCS: 96402; J9217 ==

== ENCOUNTER → 2023-07-03 14:35 | Outpatient (BNVA) | payer MEDICARE, SELFPAY | PROVIDERS: PCP Nurse Practitioner Family; Referring Provider Nurse Practitioner Family; Visit Provider Nurse Practitioner Gerontology | DX: C61 Malignant neoplasm of prostate (principal) | CPT/HCPCS: 96402; J9217 ==

== ENCOUNTER → 2023-08-09 13:50 | Outpatient (BNVA) | payer MEDICARE, SELFPAY | PROVIDERS: PCP Nurse Practitioner Family; Visit Provider Nurse Practitioner Gerontology | DX: R32 Unspecified urinary incontinence (principal); C61 Malignant neoplasm of prostate | CPT/HCPCS: 51798; 96402; J9217 ==

== ENCOUNTER → 2023-09-20 13:55 | Outpatient (BNVA) | payer MEDICARE, SELFPAY | PROVIDERS: PCP Nurse Practitioner Family; Referring Provider Nurse Practitioner Family; Visit Provider Nurse Practitioner Adult Health | DX: G30.1 Alzheimer's disease with late onset (principal); F02.80 Dementia in other diseases classified elsewhere, unspecified severity, without behavioral disturbance, psychotic disturbance, mood disturbance, and anxiety | CPT/HCPCS: 99214 ==

== ENCOUNTER 2023-10-18 14:39 | Outpatient (REF) | payer MEDICARE, SELFPAY ==
[2023-10-18 13:20] LABS: HCT 37.1 % (40.0-50.0); HGB 12.7 g/dL (13.5-17.5); MCH 30.6 pg (27.0-33.0); MCHC 34.2 % (32.0-36.0); MCV 89 fL (80-95); MPV 10.9 fL (8.0-11.0); Platelet Count 178 10^3/uL (130-400); RBC 4.15 10^6/uL (4.36-5.78); RDW 12.9 % (11.8-14.1); RDW-SD 42.5 fL; WBC 5.71 10^3/uL (4.4-10.8)
[2023-10-19 18:19] LABS: PSA, Ultrasensitive 0.16 ng/mL (<= 7.2)
== END 2023-10-18 14:40 | disposition home or self-care (01) ==
LOC: LBN 14:39
PROVIDERS: PCP Nurse Practitioner Family; Visit Provider Nurse Practitioner Family
DX: R53.83 Other fatigue (principal); C61 Malignant neoplasm of prostate
CPT/HCPCS: 84153; 85027

== ENCOUNTER → 2023-11-15 13:57 | Outpatient (BNVA) | payer MEDICARE, SELFPAY | PROVIDERS: PCP Nurse Practitioner Family; Visit Provider Nurse Practitioner Gerontology | DX: C61 Malignant neoplasm of prostate (principal) | CPT/HCPCS: 96402; J9217 ==

== ENCOUNTER → 2023-12-20 09:56 | Outpatient (BNVA) | payer MEDICARE, SELFPAY | PROVIDERS: PCP Nurse Practitioner Family; Referring Provider Nurse Practitioner Family; Visit Provider Nurse Practitioner Adult Health | DX: G30.1 Alzheimer's disease with late onset (principal); F02.80 Dementia in other diseases classified elsewhere, unspecified severity, without behavioral disturbance, psychotic disturbance, mood disturbance, and anxiety | CPT/HCPCS: 99215 ==

== ENCOUNTER → 2024-02-19 15:37 | Outpatient (BNVA) | payer MEDICARE, SELFPAY | PROVIDERS: PCP Nurse Practitioner Family; Referring Provider Nurse Practitioner Family; Visit Provider Nurse Practitioner Adult Health | DX: G30.1 Alzheimer's disease with late onset (principal); F02.80 Dementia in other diseases classified elsewhere, unspecified severity, without behavioral disturbance, psychotic disturbance, mood disturbance, and anxiety | CPT/HCPCS: 99213 ==

== ENCOUNTER → 2024-02-21 14:36 | Outpatient (BNVA) | payer MEDICARE, SELFPAY | PROVIDERS: PCP Nurse Practitioner Family; Visit Provider Nurse Practitioner Gerontology | DX: C61 Malignant neoplasm of prostate (principal) | CPT/HCPCS: 96402; J9217 ==

== ENCOUNTER 2024-03-31 21:36 | Outpatient (REF) | payer MEDICARE, SELFPAY ==
[2024-04-03 12:04] LABS: PSA, Ultrasensitive 0.03 ng/mL (<= 7.2)
== END 2024-03-31 21:37 | disposition home or self-care (01) ==
LOC: LBN 21:36
PROVIDERS: PCP Nurse Practitioner Family; Visit Provider Nurse Practitioner Gerontology
DX: C61 Malignant neoplasm of prostate (principal)
CPT/HCPCS: 84153

== ENCOUNTER → 2024-05-30 13:42 | Outpatient (BNVA) | payer MEDICARE, SELFPAY | PROVIDERS: PCP Nurse Practitioner Family; Visit Provider Urology | DX: R35.0 Frequency of micturition (principal); R39.15 Urgency of urination; R32 Unspecified urinary incontinence; C61 Malignant neoplasm of prostate | CPT/HCPCS: 96402; J9217 ==

== ENCOUNTER 2024-07-08 08:10 | Inpatient (IN) | payer MEDICARE, SELFPAY ==
[2024-07-08] VITALS (20 sets, daily range): BP systolic 136–212; BP diastolic 62–116; PULSE 51–81; RESP 8–23; TEMP 36.6–36.9; O2SAT 96–100
--- NOTE | 2024-07-08 08:00 | DI.CT_ITS ---
Exam(s) CT HEAD WO EXAM: CT HEAD WO CLINICAL HISTORY: Altered mental status. TECHNIQUE: Imaging Protocol: Axial computed tomography images with coronal and sagittal reformatted images were created and reviewed COMPARISON: CT CT HEAD WO from 07/05/2021 FINDINGS: Ventricles and Extra axial spaces: Normal in size and morphology for the patient's age. Hemorrhage: None. Cerebral parenchyma: No evidence of acute infarct or mass. Midline shift: None. Brainstem/Cerebellum: Normal. Calvarium: Normal. Visualized Paranasal sinuses:Clear. Mastoids: Clear. Soft Tissues: Unremarkable. ORBITS: Unremarkable. PITUITARY: Not enlarged. IMPRESSION: No acute intracranial process. RADIATION DOSE DELIVERED: 875.72mGy.cm Total DLP DATA REPOSITORY: All CT scans at this facility are submitted to the National Radiology Data Registry (NRDR) Dose Index Registry (DIR) with the [employer] (ACR). RADIATION OPTIMIZATION: All CT scans at this facility use at least one of these dose optimization te chniques: automated exposure control; mA and/or kV adjustment per patient size (includes targeted exa ms where dose is matched to clinical indication); or iterative reconstruction.
--- NOTE | 2024-07-08 08:00 | DI.RAD_ITS ---
Exam(s) XR CHEST 1V IN DI DEPT EXAM: XR CHEST 1V IN DI DEPT CLINICAL HISTORY: History of falling TECHNIQUE: 2D digital imaging was performed. COMPARISON: No exams were available for comparison FINDINGS: LUNGS: Clear. No pleural abnormality seen. HEART: Enlarged. AORTA: Tortuous. BONES: Unremarkable for age. Soft tissues: Unremarkable. IMPRESSION: No acute findings. DATA REPOSITORY: RADIATION DOSE DELIVERED:
--- NOTE | 2024-07-08 08:00 | ED.GENADUL_ITS ---
Discharge Plan Discharge Details Chief Complaint: Fall/Non TraumaCriteria Admit Date/Time: 07/08/24 13:13 Admit Provider: Clarke Porter Attending Provider: Clarke Porter Primary Care Provider: Jake Pritchett ED Provider: Dionte Vines Discharge Data Discharge Date/Time-TO BE ENTERED AT DEPARTURE: 07/08/24 14:19 HPI General Date/Time Provider Initiated Documentation: 07/08/24 08:11 . HPI Narrative: MDM Primary survey intact. Reassuring shock index. On secondary survey patient has no significant tenderness nor signs of trauma. Given altered mental status will complete CT head though patient has no focal neurological deficits to suggest CVA. Equal breath sounds and no hypoxia nor chest pain however will obtain a chest x-ray. Given history of prostate cancer we will attempt straight cath urinalysis to assess for UTI. Given acute encephalopathy will obtain ammonia to assess for hyperammonemia salicylates ethanol and basic labs. Given my low suspicion for CVA I do not feel the patient requires an MRI. No nuchal rigidity to suggest meningitis no indication for lumbar puncture. No reported tonic- clonic activity to suggest increased risk for seizures I do not feel the patient requires an EEG. No black or bloody stools to suggest GI bleed. Not hypoxic to suggest acute heart failure. Given altered status will obtain troponin to assess for myocardial injury. If labs and imaging are reassuring patient will require ambulatory trial. 07/09 Late charting due to patient care. Patient had a CT scan of his chest as he reportedly has had rib pain after walking on the left. Please CT scan failed to show any displaced rib fractures. I spoke with care management and physical therapy. PT felt that the patient was unsafe for discharge. I spoke with Dr. Porter who graciously agreed to accept patient to the hospitalist service. Chronic conditions affecting the care of the patient: Alzheimer's dementia History obtained from an outside historian: Irrigator Head External record review: N/A Diagnostic interpretations performed by me: Per my independent interpretation chest x-ray shows: Per my independent interpretation EKG shows: Sinus rhythm at a rate of 63. Left axis deviation no signs of LVH. Interventricular conduction delay. PA and QTc within normal limits. Low voltage. Compared to prior dated 3 years ago low voltage is persistent. T wave inversion in lead III is persistent. No acute injury pattern. ]Medications:N/A Social determinants of health affecting disposition: N/A Management discussed with: Hospitalist PT care management Treatment/interventions considered: N/A Response to therapies provided: N/A HPI This is an 83-year-old male with history of dementia arrived to the emergency department following a fall. Patient reportedly tripped and fell. He did not strike his head. He is not on anticoagulation. He did not lose consciousness. He has been increasingly weak over the past several days. He is complaining of some back pain. Exam General: Well-appearing in no acute distress speaking in complete sentences. Head: Normocephalic, atraumatic. Eye:[Pupils equal, round reactive to light.] Extraocular eye movements intact. No conjunctival injection. No scleral icterus. Ear, nose, mouth, throat: Grossly normal inspection. Normal voice, handling secretions normally. Neck: Trachea midline. Cardiovascular: Well-perfused distal extremities. Regular rate and rhythm. Back: No midline thoracic nor lumbar spinal tenderness. No step-offs. No deformities. Respiratory: Nonlabored respiration. Clear lungs bilaterally Gastrointestinal: Nondistended abdomen. Soft nontender. Musculoskeletal: No significant pitting lower extremity edema. Moving all 4 extremities spontaneously. Nontender bilateral upper and lower extremities. Skin: Normal for age and race, grossly normal temperature and turgor. No acute rash. Neurologic: Alert to person and place but not time nor events. GCS 14: E4, V4, M6 Related Data Home Medications ?Medication ?Instructions ?Recorded ?Confirmed blood sugar diagnostic #100 strips 07/12/20 07/08/24 blood-glucose meter (OneTouch #1 ea 07/12/20 07/08/24 Ultra2 Meter kit) lancets 33 gauge (OneTouch Delica #100 ea 07/12/20 07/08/24 Lancets) tamsulosin 0.4 mg capsule 0.8 mg (2 x 0.4 mg) PO QHS #180 08/31/23 07/08/24 caps ferrous sulfate 325 mg (65 mg 325 mg PO DAILY 12/20/23 07/08/24 iron) tablet diphenoxylate-atropine 2.5 1 tab PO QID PRN diarrhea #120 tabs 06/02/24 07/08/24 mg-0.025 mg tablet (Lomotil) Previous Rx's ?Medication ?Instructions ?Recorded blood sugar diagnostic #100 strips 07/12/20 blood-glucose meter (SalesFloor.itTouch #1 ea 07/12/20 Ultra2 Meter kit) lancets 33 gauge (OneTouch Delica #100 ea 07/12/20 Lancets) tamsulosin 0.4 mg capsule 0.8 mg (2 x 0.4 mg) PO QHS #180 08/31/23 caps diphenoxylate-atropine 2.5 1 tab PO QID PRN diarrhea #120 tabs 06/02/24 mg-0.025 mg tablet (Lomotil) Allergies Allergy/AdvReac Type Severity Reaction Status Date / Time No Known Allergies Allergy Verified 07/08/24 08:06 General CHENTE: 2 Medical Decision Making Quality:SDOH Health Related Social Needs: Health related social needs problems related to housin g/economic circumstances (Z59.89), problems with daily activities (Z73.9), feeling lonely/isolated (Z60.8) PFSH All Active Problems Fatigue (Acute) Edema of right lower extremity (Acute) Prostate cancer (Chronic) Hyperlipidemia (Acute 08/18/13) Essential hypertension (Acute 02/11/13) 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 CKD stage G3b/A1, GFR 30-44 and albumin creatinine ratio <30 mg/g (Acute) Urinary incontinence (Acute) Nail dystrophy (Acute) Corns and callosities (Acute) Medical History Rash and nonspecific skin eruption PSA elevation Nail disorder Unintended weight loss Hx of type 2 diabetes mellitus Low serum vitamin B12 Dysphagia (08/20/14) intermittent for years [facility] [place], neg EGD and Ba swallow Low back pain (02/11/13) lumbar laminectomy 1960's Surgical History History of lumbar laminectomy (08/20/14) Status post rotator cuff repair Colonoscopy - MAC 07/17/14 Family History FAMILY HISTORY Essential hypertension Personal history of malignant neoplasm MELANOMA Cerebral infarction Cerebral artery occlusion Mother Essential hypertension Stroke Skin cancer Father Essential hypertension Asthma Sister , 72 Breast cancer Brother No problems noted. Maternal Grandfather Alcohol abuse Heart disease Paternal Grandfather Alcohol abuse Maternal Grandmother Diabetes Heart disease Paternal Grandmother No problems noted. Son No problems noted. Son No problems noted. Son No problems noted. 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 Pets and animals: Yes Pets and animals: cat(s) and dog(s) Sexually active: No Do you think of yourself as: straight/heterosexual Current gender identity: male What is your relationship status?: How often do you talk on the phone with friends or family?: once per week How often do you get together with friends or relatives?: once per week How often do you attend gnosticist or jain services?: 4 or more times per year Do you belong to any clubs or organized social groups?: no Panel score (0-1 are the most socially isolated patients): 2 What type of physical activity do you participate in: weight lifting Duration: < 15 minutes/day Frequency: 5-6 times per week Johana/Judaism: Religious Special johana needs: No Seatbelt use: always Drive intox or ride w/intox pick up and delivery driver: No Do you feel safe at home: Yes Do you feel safe in your relationship?: Yes
--- NOTE | 2024-07-08 08:15 | RT.EKG_ITS ---
APPROVED REPORT Exam: Resting ECG Reason for Exam: weakness Patient Location: E HR:63 bpm ECG Measurements Heart Rate [address] 183 P 46 QRSd 103 QRS 8 QT 421 T 6 QTc 432 Conclusion Sinus rhythm...normal P axis, V-rate 60- 99 Low voltage, precordial leads...precordial leads <1.0mV No STEMI
[2024-07-08 08:27] LABS: Abs Immature Grans 0.04 10^3/uL (0.0-0.06); Absolute Basophil Count 0.03 10^3/uL (0.0-0.2); Absolute Eosinophil Count 0.14 10^3/uL (0.0-0.7); Absolute Lymphocyte Count 1.34 10^3/uL (1.2-3.4); Absolute Neutrophil Count 3.56 10^3/uL (1.2-6.7); Basophils % 0.5 %; Eosinophils % 2.5 %; HCT 38.6 % (40.0-50.0); HGB 13.2 g/dL (13.5-17.5); Immature Grans % 0.7 %; Lymphocytes % 24.3 %; MCH 30.3 pg (27.0-33.0); MCHC 34.2 % (32.0-36.0); MCV 89 fL (80-95); MPV 10.3 fL (8.0-11.0); Monocytes % 7.3 %; Neutrophils % 64.7 %; Platelet Count 170 10^3/uL (130-400); RBC 4.36 10^6/uL (4.36-5.78); RDW 12.3 % (11.8-14.1); RDW-SD 40.2 fL; WBC 5.51 10^3/uL (4.4-10.8)
[2024-07-08 08:52] LABS: ALT 19 U/L (16-63); AST 19 U/L (15-37); Alkaline Phosphatase 81 U/L (46-116); Anion Gap 6.7 mmol/L (3-11); BUN 33 mg/dL (7-18); Bilirubin, Total 0.76 mg/dL (0.2-1.0); CO2 30.3 mmol/L (21.0-32.0); CREATININE 1.5 mg/dL (0.70-1.30); Calcium 10.2 mg/dL (8.5-10.1); Chloride 106 mmol/L (98-107); Creatine Kinase 67 U/L (39-308); Estimated GFR 46.48 (mL/min/1.73m2); Glucose 172 mg/dL (74-106); Magnesium 1.9 mg/dL (1.8-2.4); Potassium 4.1 mmol/L (3.5-5.1); Sodium 143 mmol/L (136-145); TSH (W/Ref FT4) 1.45 uIU/mL (0.36-3.74); Total Protein 7.3 g/dL (6.4-8.2); Troponin I 12 ng/L (<or=76)
[2024-07-08 08:53] LABS: Acetaminophen < 2 ug/mL (10-30); Salicylate < 2.8 mg/dL (<2.8)
[2024-07-08 08:54] LABS: Ammonia 16 umol/L (11-32)
[2024-07-08 08:55] LABS: ETHANOL BLOOD < 3.0 mg/dL (<10)
[2024-07-08 08:58] LABS: Bilirubin Negative (Negative); Blood Small (Negative); Clarity Sl Cloudy (Clear); Glucose Negative (Negative); Ketones Negative (Negative); Leukocyte Esterase Negative (Negative); Nitrite Negative (Negative); Urobilinogen 0.2 mg/dL (Up to 0.2)
[2024-07-08 09:02] LABS: Bacteria Few HPF (Negative); C & S Indicated? No; Crystals Negative HPF (Negative); Epithelial Cells Rare HPF (Negative); Mucus Trace (Negative); WBC 0-2 HPF (0-5)
[2024-07-08 10:00] LABS: Troponin I 13 ng/L (<or=76)
--- NOTE | 2024-07-08 10:05 | IN_ITS ---
PT Notes Visit Reasons: [place]-Fall Physical Therapy Inpatient Initial Evaluation Date: 07/08/2024 Referring Doctor: Dionte Vines MD PT Orders: PT CONSULT: Difficulty ambulating Precautions: Fall. Standard. Activity as tolerated. Patient Profile/Admitting Diagnosis: Leonard is an 83-year-old male admitted today at the ED for worsening weakness this past few days which has caused a fall. Head CT and chest x-ray returned with no acute abnormality seen. Referral for physical therapy was sent for assessment of mobility status and for safety recommendations due to frequent falls and difficulty ambulating. 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CKD stage G3b/A1, GFR 30-44 and albumin creatinine ratio <30 mg/g (Acute) Urinary incontinence (Acute) Nail dystrophy (Acute) Corns and callosities (Acute) Medical History Rash and nonspecific skin eruption PSA elevation Nail disorder Unintended weight loss Hx of type 2 diabetes mellitus Low serum vitamin B12 Dysphagia (08/20/14) intermittent for years [facility] [place] eval, neg EGD and Ba swallow Low back pain (02/11/13) lumbar laminectomy 1960's Surgical History History of lumbar laminectomy (08/20/14) Status post rotator cuff repair Colonoscopy - MAC 07/17/14 Social History/Home Situation: Lives with in a private home with 4 steps to enter with rails on both sides that are far apart. 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 Kaylie is also a nurse. Equipment Owned/DME: None Subjective: Confused. Needed mximal cueing and redirection throughout session. Per Kirsten and daughter Kaylie, patient has been unable to grasp use of ambulatory device, they strongly beleive that patient will not use device anywhere. Both the and stepdaughter Kaylie reported frequent falls in the past months due to continued cognitive decline. Objective: General Observation: Resting in bed. Kirsten and stepdaughter Kaylie in room throughout session. Mental Status: Alert and oriented only to person. Single-step commands neeed to be repeated 2-3x before execution Pain: None reported Vital Signs: Closely monitored by nursing staff ROM: Right Upper Extremity: Shoulder Flexion WFL. Shoulder abduction WFL. Elbow flexion WFL. Wrist flexion WFL. Functional opening and closing of hand WFL. Left Upper Extremity: Shoulder Flexion WFL. Shoulder abduction WFL. Elbow flexion WFL. Wrist flexion WFL. Functional opening and closing of hand WFL. Right Lower Extremity: Hip flexion WFL. Hip abduction WFL. Knee flexion WFL. Ankle dorsiflexion to neutral only. Ankle plantarflexion WFL. Left Lower Extremity: Hip flexion WFL. Hip abduction WFL. Knee flexion WFL. Ankle dorsiflexion to neutral only. Ankle plantarflexion WFL. Strength: Right Upper Extremity: Shoulder flexors 3+/5. Shoulder abductors 3+/5. Elbow flexors 4-/5. Elbow extensors 4-/5. 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 Left Upper Extremity: Shoulder flexors 3+/5. Shoulder abductors 3+/5. Elbow flexors 4-/5. Elbow extensors 4-/5. 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 He is at 100 into do not need to see her twice hip flexors 3+/5. Hip abductors 3+/5. Knee flexors 4-/5. Knee extensors 3+/5. Ankle dorsiflexors 3-/5. Ankle plantarflexors 4-/5. Left Lower Extremity: Hip flexors 3+/5. Hip abductors 3+/5. Knee flexors 4-/5. Knee extensors 3+/5. Ankle dorsiflexors 3-/5. Ankle plantarflexors 4-/5. Goal is to keep her alive Bed Mobility/Transfers: Maximal verbal/tactile/visual cueing provided for use of B hands as needed for support, movement sequence, AD management, and posture to reduce fall risk and minimize pain report Supine to sit with minimal assist with HOB at 30 degrees Sit to supine with standby assist Sit to stand with contact-guard assist Stand to sit with contact-guard assist Gait: Initially utilized front wheeled walker to walk about 10 feet but with great di fficulty as patient is unable to fall because on hand placement onto walker. With minimal assist patient was guided through ED hallway with minimal assist and covered a distance of about 100 feet with maximal verbal/tactile/visual cueing for directional change, safe gait pattern, and posture. Denied pain, chest pain and lightheadedness throughout session. Balance: Static Sitting: Fair Dynamic Sitting: Poor Static Standing: Fair Dynamic Standing: Poor Special Tests: Mobility Limitations Standardized Measure [facility] AM-PAC 6 clicks Basic Mobility Inpatient Short Form: Raw Score: 11 CMS Score: 73% deficit Informed Consent/Education: Patient and family were instructed in purpose of PT consult. Assessment: Impaired safety awareness, functional mobility decline, and balance/incoordiation all contribute to high fall risk needing constant/continuous supervision and physical assistance with indoor ambulation which both and step daughter Kaylie are not able to provide. Patient requires a supervised and well-structured setting which will facilitate safe performance of ADLs while reducing fall risk. Patient presents with clinical signs and symptoms consistent with current/admitting diagnoses that have resulted to mobility limitations, gait instability, generalized weakness, and overall ADL decline as demonstrated by the following impairment level findings: 1. Decreased strength to B shoulder/hip major muscle groups 2. Impaired sitting/standing balance 3. Impaired activity tolerance 4. Limitation of joint range of motion in B shoulders (chronic) 5. Impaired safety awareness 6. Absent executive functioning skills due to ongoing dementia 7. Delyaed movement execution 8. Easy distractabiity Impairments are contributing to the following functional limitations: 1. Decline in bed mobility skills 2. Decline in transfer skills 3. Difficulty with ambulation without assistive device and physical assistance 4. Increased completion time for mobility ADL performance 5. Increased risk for falls 6. Difficulty with managing steps alone safely Patient is assessed as a [id number] moderate complexity based on the following: History: 83-year-old male with past medical history as indicated above Examination: Demonstrable impairment in strength, balance, and mobility level wi th underlying impairments and functional limitations as exhibited above as well as deficit score of 73% utilizing the [facility] Mobility Inpatient Short Form Presentation: Evolving Decision Makin moderate complexity Goals: N/A. PT evaluation and 1 treatment session only for functional mobility training with patient and caregiver. Plan of Care/Treatment Plan: N/A. PT evaluation and 1 treatment session only for functional mobility training with patient and caregiver. DISCHARGE RECOMMENDATIONS: [] Home with no services [] Home with services [specify] [] Home with outpatient PT [] [] SNF for continued rehabilitation [] [] Alf Care [] [] SNF versus LTC based on ability to participate and progress [] [X] Patient requires constant supervision/continuous verbal cueing for all ADL performance due to cognitive status/impaired safety awareness/lack of execitive functioning skills in a supervised setting TREATMENT CODE/TIME: 06976 x 20 minutes for 1 unit, 35994 x 10 minutes for 1 unit (10:05?10:35). Thank you for the opportunity to participate in the care of this patient. Maryam Leon PT, DPT, CLT [facility] [place], [place]
--- NOTE | 2024-07-08 12:30 | DI.CT_ITS ---
Exam(s) CT CHEST WO EXAM: CT CHEST WO CLINICAL HISTORY: Left-sided rib pain TECHNIQUE: Imaging Protocol: Axial computed tomography images with coronal and sagittal reformatted images were created and reviewed. Computer aided detection (CAD) was utilized. CONTRAST MATERIAL: Intravenous: Omnipaque 350 Contrast volume:structured data ml. COMPARISON: CR XR CHEST 1V IN DI DEPT from 07/08/2024 FINDINGS: Pulmonary parenchyma: Motion at lung bases. No consolidation. No dominant measurable mass. Tracheobronchial tree: No bronchiectasis or mucous plugging. Mediastinum and Lora: No dominant adenopathy or fluid collection. Pleura: No effusion. No pneumothorax. Heart: The heart is moderately dilated. Moderate coronary artery calcifications are seen. Aorta: Thoracic aorta non-dilated. Mild atherosclerotic changes. Pulmonary arteries: No gross evidence of emboli. Upper abdomen: No acute findings. Gallstones. Bones: Degenerative changes in the spine. No displaced rib fractures or suspicious lesions. Soft tissues: Unremarkable. IMPRESSION: No acute abnormality. RADIATION DOSE DELIVERED: 572.61mGy.cm Total DLP DATA REPOSITORY: All CT scans at this facility are submitted to the National Radiology Data Registry (NRDR) Dose Index Registry (DIR) with the [employer] (ACR). RADIATION OPTIMIZATION: All CT scans at this facility use at least one of these dose optimization te chniques: automated exposure control; mA and/or kV adjustment per patient size (includes targeted exa ms where dose is matched to clinical indication); or iterative reconstruction.
[2024-07-08] MEDS: ACETAMINOPHEN 1,000 MG/100 ML BAG 400 MG IVPB (12:55)
--- NOTE | 2024-07-08 13:33 | HPE_ITS ---
Date of service: 07/08/24 Time of Service: 13:34 Assessment and Plan Assessment and plan (1) Alzheimer's type dementia with late onset without behavioral disturbance: Status: Acute Assessment and plan: It would appear that the patient's dementia is getting worse and almost an exponential matter. I will check a B12 and folate just to ensure completeness as well as a CK and TSH. My guess is this is a fairly natural evolution of his underlying disease process. Will also get physical therapy to see the patient. (2) Hyperlipidemia: Status: Acute Assessment and plan: Patient clearly not on any antilipid medications (3) Essential hypertension: Status: Acute Assessment and plan: Patient is returning to over 86 he does take Lasix 20 mg daily. If the patient's blood pressure remains this significantly elevated we will have to add another agent or increase his Lasix. This blood pressure has b reviewed in light of the patient being in an emergency setting. (4) CKD stage G3b/A1, GFR 30-44 and albumin creatinine ratio <30 mg/g: Status: Acute Assessment and plan: BUN to creatinine ratio is currently 33/1.5 which is actually improved GFR from when he was here June 2021. (5) Prostate cancer: Status: Chronic Assessment and plan: Patient seen by Dr. Salgado is currently getting Lupron with what looks like good effect. History of Present Illness History of Present Illness Chief Complaint: FTT Narrative: This is an 83-year-old male who presents to the ED today after a fall. While the patient was in the ED he was evaluated by the ED physician as well as having radiographs including a CT of his head lab work and evaluation by physical therapy. His urinalysis did not show any infection his chest x-ray was benign the CT of his head was also benign. Patient did have mild elevation in his BUN to creatinine ratio and was somewhat hypertensive at 182/84 and bradycardia at a heart rate of 52. Unfortunately, the fall was unwitnessed but per his he has had increasing amounts of falls the last 2 or 3 weeks. She also endorses the patient has been having a shuffling gait as well as some visual hallucinations. In reviewing his medical records he is followed by urology for prostate cancer for which she is being treated with Lupron as well as being followed by neurology for Alzheimer's dementia. Dr. Vines of the emergency department asked us to admit the patient for observation to which he agreed. 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 CKD stage G3b/A1, GFR 30-44 and albumin creatinine ratio <30 mg/g (Acute) Urinary incontinence (Acute) Nail dystrophy (Acute) Corns and callosities (Acute) Medical History Rash and nonspecific skin eruption PSA elevation Nail disorder Unintended weight loss Hx of type 2 diabetes mellitus Low serum vitamin B12 Dysphagia (08/20/14) intermittent for years [facility] [place] EGD and Ba swallow Low back pain (02/11/13) lumbar laminectomy 1960' Surgical History History of lumbar laminectomy (08/20/14) Status post rotator cuff repair Colonoscopy - MAC 07/17/14 Family History FAMILY HISTORY Essential hypertension Personal history of malignant neoplasm MELANOMA Cerebral infarction Cerebral artery occlusion Mother Essential hypertension Stroke Skin cancer Father Essential hypertension Asthma Sister , 72 Breast cancer Brother No problems noted. Maternal Grandfather Alcohol abuse Heart disease Paternal Grandfather Alcohol abuse Maternal Grandmother Diabetes Heart disease Paternal Grandmother No problems noted. Son No problems noted. Son No problems noted. Son No problems noted. 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 Pets and animals: Yes Pets and animals: cat(s) and dog(s) Sexually active: No Do you think of yourself as: straight/heterosexual Current gender identity: male What is your relationship status?: How often do you talk on the phone with friends or family?: once per week How often do you get together with friends or relatives?: once per week How often do you attend uatsdin or episcopal services?: 4 or more times per year Do you belong to any clubs or organized social groups?: no Panel score (0-1 are the most socially isolated patients): 2 What type of physical activity do you participate in: weight lifting Duration: < 15 minutes/day Frequency: 5-6 times per week Johana/Jehovah'S Witness: Faith Special johana needs: No Seatbelt use: always Drive intox or ride w/intox sales route driver helper: No Do you feel safe at home: Yes Do you feel safe in your relationship?: Yes Meds Allergies and Home Medications Allergies Allergy/AdvReac Type Severity Reaction Status Date / Time No Known Allergies Allergy Verified 07/08/24 08:06 Home Medications ?Medication ?Instructions ?Recorded ?Confirmed ?Type blood sugar diagnostic #100 strips 07/12/20 07/08/24 Rx blood-glucose meter (OneTouch #1 ea 07/12/20 07/08/24 Rx Ultra2 Meter kit) lancets 33 gauge (OneTouch Delica #100 ea 07/12/20 07/08/24 Rx Lancets) tamsulosin 0.4 mg capsule 0.8 mg (2 x 0.4 mg) PO QHS #180 08/31/23 07/08/24 Rx caps ferrous sulfate 325 mg (65 mg 325 mg PO DAILY 12/20/23 07/08/24 History iron) tablet donepezil 10 mg tablet 10 mg PO QHS #90 tabs 03/20/24 07/08/24 Rx diphenoxylate-atropine 2.5 1 tab PO QID PRN diarrhea #120 tabs 06/02/24 07/08/24 Rx mg-0.025 mg tablet (Lomotil) furosemide 20 mg tablet 20 mg PO QAM #90 tabs 06/02/24 07/08/24 Rx Exam Narrative Exam Narrative: Head eyes ears nose and throat: Normocephalic atraumatic mucous membranes moist oropharynx is clear extract motions are intact Neck: No lymphadenopathy no JVD no thyromegaly Cardiovascular: Bradycardic but no murmur rubs or gallops appreciated Lungs: Clear to auscultation bilaterally with good air exchange no accessory muscle use noted Abdomen: Soft nontender nondistended x 4 quadrants bowel sounds present Extremities: 1+ lower extremity edema bilaterally Neurologic: Cranial nerves II through XII are intact as tested reflexes in the upper and lower extremity normal as tested dorsi and plantar flexion of the lower extremities is 5 out of 5. Patient does have issues with past-pointing. Psych: Patient is alert but is only oriented to person, can do simple arithmetic, but has difficulty with abstract thoughts. Constitutional: 83-year-old gentleman appears his stated age no apparent distress has difficulty with a linear history. Results Labs 07/08/24 08:16 07/08/24 08:16 Labs: Laboratory Results - last 24 hr 07/08/24 07/08/24 07/08/24 08:16 08:30 08:43 WBC 5.51 RBC 4.36 Hgb 13.2 L Hct 38.6 L MCV 89 MCH 30.3 MCHC 34.2 RDW 12.3 Plt Count 170 MPV 10.3 Immature Gran % 0.7 Neutrophils % 64.7 Lymphocytes % 24.3 Monocytes % 7.3 Eosinophils % 2.5 Basophils % 0.5 Nucleated RBC % 0.0 Absolute Neutrophils 3.56 Absolute Lymphocytes 1.34 Absolute Monocytes 0.40 Absolute Eosinophils 0.14 Absolute Basophils 0.03 Sodium 143 Potassium 4.1 Chloride 106 Carbon Dioxide 30.3 Anion Gap 6.7 BUN 33 H Creatinine 1.5 H Est GFR (CKD-EPI 2020) 46.48 Glucose 172 H Calcium 10.2 H Magnesium 1.9 Total Bilirubin 0.76 AST 19 ALT 19 Alkaline Phosphatase 81 Ammonia 16 Creatine Kinase 67 Troponin I 12 Total Protein 7.3 Albumin 4.0 TSH 1.45 Urine Color Yellow Urine Clarity Sl Cloudy Urine pH 6.0 Ur Specific Bock 1.020 Urine Protein Negative Urine Ketones Negative Urine Blood Small H Urine Nitrite Negative Urine Bilirubin Negative Urine Urobilinogen 0.2 Ur Leukocyte Esterase Negative Urine RBC 10-20 H Urine WBC 0-2 Ur Epithelial Cells Rare Urine Crystals Negative Urine Bacteria Few Urine Casts Urine Mucus Trace Ur Culture Indicated? No Urine Glucose Negative Salicylates < 2.8 Acetaminophen < 2 Ethyl Alcohol < 3.0 07/08/24 07/08/24 09:37 11:01 WBC RBC Hgb Hct MCV MCH MCHC RDW Plt Count MPV Immature Gran % Neutrophils % Lymphocytes % Monocytes % Eosinophils % Basophils % Nucleated RBC % Absolute Neutrophils Absolute Lymphocytes Absolute Monocytes Absolute Eosinophils Absolute Basophils Sodium Potassium Chloride Carbon Dioxide Anion Gap BUN Creatinine Est GFR (CKD-EPI 2020) Glucose Calcium Magnesium Total Bilirubin AST ALT Alkaline Phosphatase Ammonia Creatine Kinase Troponin I 13 Cancelled Total Protein Albumin TSH Urine Color Urine Clarity Urine pH Ur Specific Bock Urine Protein Urine Ketones Urine Blood Urine Nitrite Urine Bilirubin Urine Urobilinogen Ur Leukocyte Esterase Urine RBC Urine WBC Ur Epithelial Cells Urine Crystals Urine Bacteria Urine Casts Urine Mucus Ur Culture Indicated? Urine Glucose Salicylates Acetaminophen Ethyl Alcohol Last Vital Signs Temp 36.7 C 07/08/24 09:11 Pulse 52 L 07/08/24 10:01 Resp 16 07/08/24 10:01 BP 182/84 H 07/08/24 10:01 Pulse Ox 99 07/08/24 09:30 Time Spent Time spent with Patient: 40-54 minutes Time was spent: preparing to see the patient(eg.review tests), obtaining and/or reviewing separately otained hiistory, ordering medications,tests, procedures, referring, communicating with other health care management associate, indepentently interpreting results, counseling the patient and care coordination
[2024-07-08 13:44] LABS: Creatine Kinase 61 U/L (39-308)
--- NOTE | 2024-07-08 13:58 | W.PC.ACHO ---
Registration Status: Primary Language: Preferred Language: ED Information & Data Chief Complaint Fall/Non TraumaCriteria 07/08/24 08:08 Chief Complaint Fall/Non TraumaCriteria 07/08/24 07:55 Triage Note mechanical fall, trip and 07/08/24 07:55 fall no head strike, BP hypertensive at home, does not take blood thinners. Medical / Surgical History (Last Reviewed 02/19/24 @ 16:03 by Corrine Day) Rash and nonspecific skin eruption PSA elevation Nail disorder Unintended weight loss Hx of type 2 diabetes mellitus Low serum vitamin B12 Dysphagia (08/20/14) Low back pain (02/11/13) (Last Reviewed 02/19/24 @ 16:03 by Corrine Day) History of lumbar laminectomy (08/20/14) Status post rotator cuff repair Colonoscopy - MAC Most Recent Vital Signs Temperature 36.7 C 07/08/24 09:11 Temperature Source Tympanic 07/08/24 09:11 Pulse 52 L 07/08/24 10:01 Pulse Rhythm Regular 07/08/24 09:11 Pulse Strength Normal 07/08/24 09:11 Pulse 66 07/08/24 10:01 Respiratory Rate 16 07/08/24 10:01 Respiratory Effort Normal 07/08/24 09:11 Respiratory Depth Normal 07/08/24 09:11 Respiratory Pattern Normal 07/08/24 09:11 Blood Pressure 182/84 H 07/08/24 10:01 Blood Pressure Mean 112 07/08/24 10:01 Blood Pressure Position Supine 07/08/24 07:55 Pulse Oximetry 99 07/08/24 09:30 Oxygen Delivery Method Room Air 07/08/24 09:11 Oxygen Flow Rate 0 07/08/24 09:11 Pain Level 0 07/08/24 09:11 Allergies No Known Allergies Allergy (Verified 07/08/24 08:06) Precautions Isolation Standard precaution 07/08/24 08:08 IV IV Catheter Type [Right Saline Lock Antecubital] IV Catheter Gauge [Right 18 Antecubital] Diet Orders Category Date Time Status Regular/Normal [DIET] Nutrition 07/08/24 Dinner Active Diagnostics 07/08/24 07/08/24 07/08/24 Range/Units 11:01 09:37 08:43 WBC (4.4-10.8) 10^3/uL RBC (4.36-5.78) 10^6/uL Hgb (13.5-17.5) g/dL Hct (40.0-50.0) % MCV (80-95) fL MCH (27.0-33.0) pg MCHC (32.0-36.0) % RDW (11.8-14.1) % Plt Count (130-400) 10^3/uL MPV (8.0-11.0) fL Immature Gran % % Neutrophils % % Lymphocytes % % Monocytes % % Eosinophils % % Basophils % % Nucleated RBC % (0.0-0.3) % Absolute Neutrophils (1.2-6.7) 10^3/uL Absolute Lymphocytes (1.2-3.4) 10^3/uL Absolute Monocytes (0.1-0.8) 10^3/uL Absolute Eosinophils (0.0-0.7) 10^3/uL Absolute Basophils (0.0-0.2) 10^3/uL Sodium (136-145) mmol/L Potassium (3.5-5.1) mmol/L Chloride (98-107) mmol/L Carbon Dioxide (21.0-32.0) mmol/L Anion Gap (3-11) mmol/L BUN (7-18) mg/dL Creatinine (0.70-1.30) mg/dL Est GFR (CKD-EPI 2020) (mL/min/1.73m2) Glucose (74-106) mg/dL Calcium (8.5-10.1) mg/dL Magnesium (1.8-2.4) mg/dL Total Bilirubin (0.2-1.0) mg/dL AST (15-37) U/L ALT (16-63) U/L Alkaline Phosphatase (46-116) U/L Ammonia (11-32) umol/L Creatine Kinase 61 (39-308) U/L Troponin I Cancelled 13 (<or=76) ng/L Total Protein (6.4-8.2) g/dL Albumin (3.4-5.0) g/dL Vitamin B12 Pending Folate Pending TSH (0.36-3.74) uIU/mL Urine Color Yellow (Yellow) Urine Clarity Sl Cloudy (Clear) Urine pH 6.0 (5-8) Ur Specific [place] 1.020 (1.005-1.025) Urine Protein Negative (Neg-Trace) mg/dL Urine Ketones Negative (Negative) mg/dL Urine Blood Small H (Negative) Urine Nitrite Negative (Negative) Urine Bilirubin Negative (Negative) Urine Urobilinogen 0.2 (Up to 0.2) mg/dL Ur Leukocyte Esterase Negative (Negative) Urine RBC 10-20 H (0-2) HPF Urine WBC 0-2 (0-5) HPF Ur Epithelial Cells Rare (Negative) HPF Urine Crystals Negative (Negative) HPF Urine Bacteria Few (Negative) HPF Urine Casts (Negative) LPF Urine Mucus Trace (Negative) Ur Culture Indicated? No Urine Glucose Negative (Negative) mg/dL Salicylates (<2.8) mg/dL Acetaminophen (10-30) ug/mL Ethyl Alcohol (<10) mg/dL 07/08/24 07/08/24 Range/Units 08:30 08:16 WBC 5.51 (4.4-10.8) 10^3/uL RBC 4.36 (4.36-5.78) 10^6/uL Hgb 13.2 L (13.5-17.5) g/dL Hct 38.6 L (40.0-50.0) % MCV 89 (80-95) fL MCH 30.3 (27.0-33.0) pg MCHC 34.2 (32.0-36.0) % RDW 12.3 (11.8-14.1) % Plt Count 170 (130-400) 10^3/uL MPV 10.3 (8.0-11.0) fL Immature Gran % 0.7 % Neutrophils % 64.7 % Lymphocytes % 24.3 % Monocytes % 7.3 % Eosinophils % 2.5 % Basophils % 0.5 % Nucleated RBC % 0.0 (0.0-0.3) % Absolute Neutrophils 3.56 (1.2-6.7) 10^3/uL Absolute Lymphocytes 1.34 (1.2-3.4) 10^3/uL Absolute Monocytes 0.40 (0.1-0.8) 10^3/uL Absolute Eosinophils 0.14 (0.0-0.7) 10^3/uL Absolute Basophils 0.03 (0.0-0.2) 10^3/uL Sodium 143 (136-145) mmol/L Potassium 4.1 (3.5-5.1) mmol/L Chloride 106 (98-107) mmol/L Carbon Dioxide 30.3 (21.0-32.0) mmol/L Anion Gap 6.7 (3-11) mmol/L BUN 33 H (7-18) mg/dL Creatinine 1.5 H (0.70-1.30) mg/dL Est GFR (CKD-EPI 2020) 46.48 (mL/min/1.73m2) Glucose 172 H (74-106) mg/dL Calcium 10.2 H (8.5-10.1) mg/dL Magnesium 1.9 (1.8-2.4) mg/dL Total Bilirubin 0.76 (0.2-1.0) mg/dL AST 19 (15-37) U/L ALT 19 (16-63) U/L Alkaline Phosphatase 81 (46-116) U/L Ammonia 16 (11-32) umol/L Creatine Kinase 67 (39-308) U/L Troponin I 12 (<or=76) ng/L Total Protein 7.3 (6.4-8.2) g/dL Albumin 4.0 (3.4-5.0) g/dL Vitamin B12 Folate TSH 1.45 (0.36-3.74) uIU/mL Urine Color (Yellow) Urine Clarity (Clear) Urine pH (5-8) Ur Specific [place] (1.005-1.025) Urine Protein (Neg-Trace) mg/dL Urine Ketones (Negative) mg/dL Urine Blood (Negative) Urine Nitrite (Negative) Urine Bilirubin (Negative) Urine Urobilinogen (Up to 0.2) mg/dL Ur Leukocyte Esterase (Negative) Urine RBC (0-2) HPF Urine WBC (0-5) HPF Ur Epithelial Cells (Negative) HPF Urine Crystals (Negative) HPF Urine Bacteria (Negative) HPF Urine Casts (Negative) LPF Urine Mucus (Negative) Ur Culture Indicated? Urine Glucose (Negative) mg/dL Salicylates < 2.8 (<2.8) mg/dL Acetaminophen < 2 (10-30) ug/mL Ethyl Alcohol < 3.0 (<10) mg/dL Intake and Output - 24 Hour Total 07/08/24 07:42 thru 07/08/24 08:45 Intake Total 10 Output Total 175 Balance -165 Weight 96 kg Intake: IV 10 Output: Urine 175 Other: Urine Color Straw Urine Appearance Clear Falls Risk Assessment History of Falls Admit Due to Fall 07/08/24 08:47 Contributing Factors Confusion 07/08/24 08:47 Ambulatory Aids Independent 07/08/24 08:47 Tubes/Lines With any additional score 07/08/24 08:47 Gait Evaluation W/any additional score 07/08/24 08:47 Cognition No cognitive impairment 07/08/24 08:47 Fall Total Score 68 07/08/24 08:47 Level of Risk High Risk 07/08/24 08:47 Problems (Last Reviewed 02/19/24 @ 16:03 by Corrine Day) Prostate cancer (Chronic) Hyperlipidemia (Acute 08/18/13) Essential hypertension (Acute 02/11/13) Alzheimer's type dementia with late onset without behavioral disturbance (Acute) CKD stage G3b/A1, GFR 30-44 and albumin creatinine ratio <30 mg/g (Acute) v v v v v v v v v Sending and/or Receiving Nurses: Please use comment section below to note any information pertinent to the patient hand-off not included above. Information / Comments: Report received from: Silvana in ED given to Leilani SAMAYOA at 1358, pt heading to room 211
[2024-07-08 14:04] LABS: Folate > 20.0 ng/mL (8.6-20.0)
--- NOTE | 2024-07-08 14:32 | INITIAL_ITS ---
Date of service: 07/08/24 Time of Service: 14:32 Care Management Initial Assmt Initial Assessment Reason for Hospitalization: Alzheimer's type dementia Functional Status/Living Situation Patient Presentation: Leonard was lying in bed in the ED when CM met with him. His , Kirsten, and step daughter, Kaylie were in the room visiting. He was not able to engage in a linear conversation with CM. CM spoke with Kirsten, who expressed concern about being able to care for Leonard at home. She stated that she works as an RN, therefore he is home alone during the day. She stated that he was able to be home alone until about a week ago, at which point Kirsten noticed a decline in his mobility. He has had falls at home, unwitnessed. CM discussed options for fci care, including SNF vs private caregivers at home, and explained the limitations of what is covered by insurance; CM asked about fci [facility], which Kirsten was hesitant about, as she is worried about their shared assets. CM offered to send a referral to [facility] for watermelon inspector planning. Kirsten expressed frustration, as she does not feel she can take care of him at home without help. She stated that she cannot afford private caregivers, or to pay out of pocket for Leonard to go to a facility. Per MD, he does not have an acute reason for hospitalization. He was admitted to the hospitalist service, in observation, to coordinate his care at home vs a facility. He is ACO connected; CM will verify this and determine if he is appropriate for referrals to be sent to ACO waiver approved facilities. CM will continue to follow. Town of Residence: [facility] Resides with: Spouse (Kirsten) Natural Supports: , Kirsten Step daughterKaylie Employment Status: Retired Instrumental Activities of Daily Living (ADLs): Requires support Medications Medication Management: No Issues/Barriers identified Physical Functioning/Mobility Assistive Device: None Advance Directives Advance Directives: Do you have an Advance Directive: N 06/11/14 08:51 AD On File at [facility]: N 08/18/13 08:49 Date Asked 07/08/24 07/08/24 08:47 AD Date Reviewed COLST On File at [facility] COLST Date Scanned Code Status Resuscitation Status DNR/DNI Insurance Coverage/Financial Issues Insurance: [employer] GRE[employer] supplement Care Team Visit Care Team Role Provider Type Jake Dege Steph, BUSINESS SYSTEMS ANALYST Primary Care Provider NURSE PRACTITIONER Bibiana Mcfarlane Other Providers DIRECTOR OF CASINO MARKETING Cristela Whyte Other Providers DIRECTOR OF CASINO MARKETING Yasmine Rapp Other Providers DIRECTOR OF CASINO MARKETING Ashely Perdomo Other Providers OTHER Alicia Rao RN Other Providers DIRECTOR OF CASINO MARKETING Dionte Vines MD Emergency Provider [facility] STAFF PHYSICIAN Clarke Porter MD Admit Provider [facility] STAFF PHYSICIAN Attending Provider Discharge Potential Discharge Needs: PCP F/U Appt Anticipated Barriers to Discharge: Other ( concerned about caring for him at home.) Patient/Family Education Needs: Review discharge instructions, discuss Ask Me Three Transportation: Private vehicle Plan: Anticipate Leonard will return home with new orders for HH services vs facility placement; barriers to placement include a lack of skilled need (per PT), as well as a lack of payer source for additional care at home. If he does not have a safe disposition, he may be transitioned to [facility], which is self pay. CM will continue to discuss options with Kirsten regarding discharge planning. A palliative care consult was placed. He will follow up with his PCP and discharge plan of care. CM will continue to follow. 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 CKD stage G3b/A1, GFR 30-44 and albumin creatinine ratio <30 mg/g (Acute) Urinary incontinence (Acute) Nail dystrophy (Acute) Corns and callosities (Acute) Medical History Rash and nonspecific skin eruption PSA elevation Nail disorder Unintended weight loss Hx of type 2 diabetes mellitus Low serum vitamin B12 Dysphagia (08/20/14) intermittent for years [facility] [place], neg EGD and Ba swallow Low back pain (02/11/13) lumbar laminectomy 1960's Surgical History History of lumbar laminectomy (08/20/14) Status post rotator cuff repair Colonoscopy - MAC 07/17/14 Family History FAMILY HISTORY Essential hypertension Personal history of malignant neoplasm MELANOMA Cerebral infarction Cerebral artery occlusion Mother Essential hypertension Stroke Skin cancer Father Essential hypertension Asthma Sister , 72 Breast cancer Brother No problems noted. Maternal Grandfather Alcohol abuse Heart disease Paternal Grandfather Alcohol abuse Maternal Grandmother Diabetes Heart disease Paternal Grandmother No problems noted. Son No problems noted. Son No problems noted. Son No problems noted. 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 Pets and animals: Yes Pets and animals: cat(s) and dog(s) Sexually active: No Do you think of yourself as: straight/heterosexual Current gender identity: male What is your relationship status?: How often do you talk on the phone with friends or family?: once per week How often do you get together with friends or relatives?: once per week How often do you attend evangelical or mandaen services?: 4 or more times per year Do you belong to any clubs or organized social groups?: no Panel score (0-1 are the most socially isolated patients): 2 What type of physical activity do you participate in: weight lifting Duration: < 15 minutes/day Frequency: 5-6 times per week Johana/Jewish: Lutheran Special johana needs: No Seatbelt use: always Drive intox or ride w/intox tow truck driver: No Do you feel safe at home: Yes Do you feel safe in your relationship?: Yes
[2024-07-08 14:46] LABS: Vitamin B12 204 pg/mL (193-986)
[2024-07-08] MEDS: Enoxaparin 40 MG/0.4 ML SYR SC (15:45)
[2024-07-08] MEDS: Normal Saline 1,000 ML 100 ML IV (15:45)
--- NOTE | 2024-07-08 17:11 | NUR.NOTE ---
Nursing Note: Pt has alzheimers dementia and is a max assist when transferring. He has a challenging time walking with a shuffling gait and inability to stand up straight, at least 2 people needed for transfer. Pt is very fidgety, pulling off his out and at his IV. Fidget blanket provided to pt which seemed to help but I am not sure how long it will keep him distracted. Concern communicated to provider.
[2024-07-08] MEDS: Lidocaine 5% Patch 1 PATCH TP (18:14)
[2024-07-08] MEDS: Tamsulosin 0.4 MG CAPCR 0.8 MG PO (20:03)
[2024-07-09] VITALS (9 sets, daily range): BP systolic 137–172; BP diastolic 64–83; PULSE 72–145; RESP 16–19; TEMP 36.5–37.2; O2SAT 93–97
[2024-07-09] MEDS: Normal Saline 1,000 ML 100 ML IV ×2 (02:00→14:33)
[2024-07-09] MEDS: Lidocaine Patch Removal 1 EACH TP (06:04)
[2024-07-09 06:58] LABS: Abs Immature Grans 0.01 10^3/uL (0.0-0.06); Absolute Basophil Count 0.03 10^3/uL (0.0-0.2); Absolute Eosinophil Count 0.09 10^3/uL (0.0-0.7); Absolute Lymphocyte Count 1.13 10^3/uL (1.2-3.4); Absolute Monocyte Count 0.47 10^3/uL (0.1-0.8); Absolute Neutrophil Count 3.62 10^3/uL (1.2-6.7); Basophils % 0.6 %; Eosinophils % 1.7 %; HCT 36.2 % (40.0-50.0); HGB 12.7 g/dL (13.5-17.5); Immature Grans % 0.2 %; Lymphocytes % 21.1 %; MCH 29.7 pg (27.0-33.0); MCHC 35.1 % (32.0-36.0); MCV 85 fL (80-95); MPV 10.8 fL (8.0-11.0); Monocytes % 8.8 %; Neutrophils % 67.6 %; Platelet Count 150 10^3/uL (130-400); RBC 4.27 10^6/uL (4.36-5.78); RDW 12.2 % (11.8-14.1); RDW-SD 37.4 fL; WBC 5.35 10^3/uL (4.4-10.8)
[2024-07-09 07:35] LABS: ALT 14 U/L (16-63); AST 17 U/L (15-37); Albumin 3.5 g/dL (3.4-5.0); Alkaline Phosphatase 82 U/L (46-116); Anion Gap 7.5 mmol/L (3-11); BUN 24 mg/dL (7-18); Bilirubin, Total 0.93 mg/dL (0.2-1.0); CO2 27.5 mmol/L (21.0-32.0); CREATININE 1.2 mg/dL (0.70-1.30); Calcium 9.9 mg/dL (8.5-10.1); Chloride 107 mmol/L (98-107); Estimated GFR 60.75 (mL/min/1.73m2); Glucose 181 mg/dL (74-106); Sodium 142 mmol/L (136-145); Total Protein 6.7 g/dL (6.4-8.2)
[2024-07-09] MEDS: Ferrous Sulfate 325 MG TAB PO (09:27)
--- NOTE | 2024-07-09 11:15 | PHA.REVIEW2 ---
Pharmacy Admission Review Admission Clinical Review Admission Pharmacy Review: Hyperlipidemia (Acute 08/18/13) Essential hypertension (Acute 02/11/13) Alzheimer's type dementia with late onset without behavioral disturbance (Acute) CKD stage G3b/A1, GFR 30-44 and albumin creatinine ratio <30 mg/g (Acute) No Known Allergies Allergy (Verified 07/08/24 08:06) Resuscitation Status DNR/DNI Height 6 ft Weight 89.811 kg Pharmacy Admission Review Renal Dosing Renal Dosing: BUN 24 mg/dL (7-18) H 07/09/24 06:40 Creatinine 1.2 mg/dL (0.70-1.30) 07/09/24 06:40 Medications needing adjustments: Reviewed (Crcl 61.33 mL/min, BUN decreased from 33 and SCr decreased from 1.5) List of meds needing interventions: Current medications are okay Anticoagulation Anticoagulation: Hgb 12.7 g/dL (13.5-17.5) L 07/09/24 06:40 Hct 36.2 % (40.0-50.0) L 07/09/24 06:40 Plt Count 150 10^3/uL (130-400) 07/09/24 06:40 Creatinine 1.2 mg/dL (0.70-1.30) 07/09/24 06:40 DVT Prophylaxis: Reviewed (Hgb decreased from 13.2) Medications: Enoxaparin (40mg daily) Relevant Labs Relevant Labs: Sodium 142 mmol/L (136-145) 07/09/24 06:40 Potassium 4.0 mmol/L (3.5-5.1) 07/09/24 06:40 Chloride 107 mmol/L (98-107) 07/09/24 06:40 Magnesium 1.9 mg/dL (1.8-2.4) 07/08/24 08:16 Electrolytes, C-Reactive P, ESR: Reviewed (glucose 181 at 0640) Cardiac Review Cardiac Review: Troponin I Cancelled 07/08/24 11:01 BP, HR, EF%: Reviewed (BP WNL - was elevated consistently yesterday, HR 103) QTc Review QTc: Reviewed (432 from 07/08/24) IV to PO Switch IV Medications: Reviewed Home Meds Home Med List reviewed: Reviewed Current Meds Current Medication Order Review: Intervened Comments: Added IV admission order set
--- NOTE | 2024-07-09 12:45 | RT.EKG_ITS ---
APPROVED REPORT Exam: Resting ECG Reason for Exam: Hr sustaining >100 Patient Location: I HR:104 bpm ECG Measurements Heart Rate 104 AXIS WY [id number] P [id number] QRSd 95 QRS 64 QT 351 T -13 QTc 461 Conclusion Atrial fibrillation...? atrial activity Inferior infarct, age indeterminate...Q>35mS, T neg, II III aVF Consider anterior infarct...Q >30mS in V2-V5
--- NOTE | 2024-07-09 13:38 | PDOC.CMPRO ---
Date of service: 07/09/24 Time of Service: 13:38 Care Management Progress Note Progress Note Text Progress Note Text: Nato was sitting up in bed when CM met with him. He was sleepy and did not engage much. CM inquired about his ACO status today, which was found to be active. CM spoke to PT who stated that he may be a candidate for skilled rehab, since this is a change from his baseline mobility. CM will discuss this with his , who visited for a brief time around noon; unfortunately CM was unaware of her visit. CM asked nursing to notify if she arrives later, to discuss discharge planning considerations. Palliative care will visit him tomorrow; CM will ask his to be present, if possible. CM will continue to follow. Discharge Potential Discharge Needs: Consult Consult Services Needed: Palliative and PCP F/U Appt Anticipated Barriers to Discharge: None Identified Patient/Family Education Needs: Review discharge instructions, discuss Ask Me Three Transportation: EMS Plan: Nato's discharge plan is unclear at this time. He may transfer to SNF for short term rehab, if eligible, utilizing the ACO waiver. CM confirmed that he is active on the ACO list; the closest facility is [facility]. If he is not accepted for short term rehab, he will either return home with increased services vs SNF for terminal operations manager care vs community group home. Palliative care has been consulted. He will follow up with his PCP and discharge plan of care, and will likely require EMS transport due to his dementia diagnosis. CM will continue to follow. Social Determinants of Health Screening Social Determinants of Health last assessed: 07/09/24 Will the Patient Participate in the Screening?: Yes Do you worry about having a steady place to live?: no Problems where you live: no known problems In the past 12 months, have you had to go without electric, gas, oil or water in your home?: no Have you or anyone in your house had to go without enough food to eat?: no Has lack of transportation kept you from medical appointments or from doing things needed for daily living?: no Has anyone in your life made you feel unsafe or unsupported?: no How hard is it for you to pay for the very basics like food, housing, medical care, and heating? Would you say it is:: Somewhat hard Do you want help finding or keeping work or a job?: I do not need or want help If for any reason you need help with day-to-day activities such as bathing, preparing meals, shopping, managing finances, etc., do you get the help you need?: I need a lot more help How often do you feel lonely or isolated from those around you?: Sometimes Do you speak a language other than Ukrainian at home?: No Does the patient want assistance with any of the above?: Yes Social Determinants of Health Comments(SDTN Details): provided answers Health Related Social Needs Health related social needs: problems related to housing/economic circumstances (Z59.89), problems with daily activities (Z73.9) and feeling lonely/isolated (Z60.8)
[2024-07-09] MEDS: Enoxaparin 40 MG/0.4 ML SYR SC (15:08)
--- NOTE | 2024-07-09 15:52 | W.PM.PROGNOT ---
Date of Service Date of service: 07/09/24 Time of Service: 15:52 Assessment and Plan Assessment and plan (1) Alzheimer's type dementia with late onset without behavioral disturbance: Status: Acute Assessment and plan: It would appear that the patient's dementia is getting worse and almost an exponential matter. I will check a B12 and folate just to ensure completeness as well as a CK and TSH. My guess is this is a fairly natural evolution of his underlying disease process. Will also get physical therapy to see the patient. (2) Hyperlipidemia: Status: Acute Assessment and plan: Patient clearly not on any antilipid medications (3) Essential hypertension: Status: Acute Assessment and plan: Patient is returning to over 86 he does take Lasix 20 mg daily. If the patient's blood pressure remains this significantly elevated we will have to add another agent or increase his Lasix. This blood pressure has b reviewed in light of the patient being in an emergency setting. (4) CKD stage G3b/A1, GFR 30-44 and albumin creatinine ratio <30 mg/g: Status: Acute Assessment and plan: BUN to creatinine ratio is currently 33/1.5 which is actually improved GFR from when he was here June 2021. (5) Prostate cancer: Status: Chronic Assessment and plan: Patient seen by Dr. Salgado is currently getting Lupron with what looks like good effect. (6) Paroxysmal atrial fibrillation: Status: Acute Assessment and plan: Pt did have an episode of afib which resolved spontaneously so I am diagnosing him with PAF. Will start on anticoagulantas his Has-Bled score is 1 for age only. Pt does have recent falls but the question is are the falls related to underlying cardiac arrhythmias or from another cause. I will start on eliquis 5 mg po bid. His heart rate is 72 so will not start rate control at this point. Will add tsh for completeness Subjective Subjective Interval history since last seen: PT seen and examined in his room this afternoon. At that time he did not have any complaints. NS report pt with episode of afib which was captured on telemetry and ekg but resolved spontaneously. Of note, pt and family state pt has had multiple falls in increasing frequency recently. POC dw bedside nurse during MDR Exam Narrative Exam Narrative: Head eyes ears nose and throat: Normocephalic atraumatic mucous membranes moist oropharynx is clear extract motions are intact Neck: No lymphadenopathy no JVD no thyromegaly Cardiovascular: Bradycardic but no murmur rubs or gallops appreciated Lungs: Clear to auscultation bilaterally with good air exchange no accessory muscle use noted Abdomen: Soft nontender nondistended x 4 quadrants bowel sounds present Extremities: 1+ lower extremity edema bilaterally Neurologic: Cranial nerves II through XII are intact as tested reflexes in the upper and lower extremity normal as tested dorsi and plantar flexion of the lower extremities is 5 out of 5. Patient does have issues with past-pointing. Psych: Patient is alert but is only oriented to person, can do simple arithmetic, but has difficulty with abstract thoughts. Constitutional: 83-year-old gentleman appears his stated age no apparent distress has difficulty with a linear history. Objective Last Vital Signs Temp 36.5 C 07/09/24 15:23 Pulse 72 07/09/24 15:23 Resp 19 07/09/24 15:23 BP 146/82 H 07/09/24 15:23 Pulse Ox 94 07/09/24 15:23 Laboratory Results - last 24 hr 07/09/24 06:40 WBC 5.35 RBC 4.27 L Hgb 12.7 L Hct 36.2 L MCV 85 D MCH 29.7 MCHC 35.1 RDW 12.2 Plt Count 150 MPV 10.8 Immature Gran % 0.2 Neutrophils % 67.6 Lymphocytes % 21.1 Monocytes % 8.8 Eosinophils % 1.7 Basophils % 0.6 Nucleated RBC % 0.0 Absolute Neutrophils 3.62 Absolute Lymphocytes 1.13 L Absolute Monocytes 0.47 Absolute Eosinophils 0.09 Absolute Basophils 0.03 Sodium 142 Potassium 4.0 Chloride 107 Carbon Dioxide 27.5 Anion Gap 7.5 BUN 24 H Creatinine 1.2 Est GFR (CKD-EPI 2020) 60.75 Glucose 181 H Calcium 9.9 Total Bilirubin 0.93 AST 17 ALT 14 L Alkaline Phosphatase 82 Total Protein 6.7 Albumin 3.5 Time Spent with Patient Time Spent with Patient: 25-34 minutes Time was spent: preparing to see the patient(eg.review tests), obtaining and/or reviewing separately otained hiistory, ordering medications,tests, procedures, referring, communicating with other health director long term care, indepentently interpreting results, counseling the patient and care coordination
--- NOTE | 2024-07-09 16:16 | CHAPLAIN ---
Leonard was up in the chair actively engaged in a busy blanket when I stopped in. I'm not sure if he understood my introduction, be he engaged in a short conversation with me. 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
--- NOTE | 2024-07-09 17:00 | PT.INTREAT ---
PT Notes Visit Reasons: Failure to Thrive Inpatient Physical Therapy Treatment Note [facility] Date: 07/09/2024 PRECAUTIONS: Falls, standard, IV access SUBJECTIVE: Patient noted with automatic speech when therapist entered the room stating good morning. Patient able to state good morning how are you?. patient's speech then became less clear and unintelligible at times. OBJECTIVE: Male seated in recliner increase lean to the left difficulty repositioning self. ? PAIN: Denied VITALS: ?Monitored via telemetry throughout Therapeutic Activities (92460u[]): Direct one-on-one instruction in dynamic activities to improve functional performance. Provided skilled cues and instruction on performance and technique throughout. Transfers: Sit to stand mod assist of 2 with increased time and hand overhand cues for hand placement x 3 trials. Patient noted with increased list to the left in standing Chair to commode with FWW mod assist of 2 and continuous cues to attend to task. Patient requires increased time to process information and then perform. He is easily distracted transfer was performed toward the right Commode to chair with FWW min assist of 2 1 standing of note transfer was towards left patient continue with listing to the left however was able to move his feet. Balance: Sit static sitting in midline with cues to improve list to the left Static stand with bilateral upper extremity support of FWW with min assist x 2 to sustain upright posture ASSESSMENT: Patient demonstrates intermittent tremulous/jerking movements of bilateral upper extremities at rest. Patient difficulty attending to task however with increased time and simple commands he is able to carryover to task. Patient performs best with less cueing and allowed time to process instruction. PLAN: 1-2x/day, 7 days/week x 1 week. Plan of care has been reviewed with the SPECIAL INVESTIGATION UNIT INVESTIGATOR providing the service under Physical Therapy direction. Initiate Physical Therapy intervention for strengthening, bed mobility, transfers, gait, stairs, balance training, use of assistive device. TREATMENT CODE/TIME: 80405/1145?1210 DISCHARGE RECOMMENDATION: SNF
--- NOTE | 2024-07-09 18:19 | PTTR_ITS ---
PT Notes Visit Reasons: Failure to Thrive Inpatient Physical Therapy Treatment Note [facility] Date: 07/09/2024 PRECAUTIONS: Falls, standard, IV access OBJECTIVE: Male seated in recliner staff attempting to assist patient back to bed patient having difficulty following instructions PAIN: Denied VITALS: ?Monitored via telemetry throughout Therapeutic Activities ([id number][]): Direct one-on-one instruction in dynamic activities to improve functional performance. Provided skilled cues and instruction on performance and technique throughout. Transfers: Sit to stand mod assist of 2 with increased time and hand overhand cues for hand placement x 1 trial. Patient noted with increased list to the left in standing Chair to bed with FWW mod assist of 2 and cues provided in a slow calm manner. Patient requires increased time to process information and then perform. Patient required intermittent tactile cues to initiate step with right lower extremity. Balance: Sit static sitting in midline with cues to improve list to the left Static stand with bilateral upper extremity support of FWW with min assist x 2 to sustain upright posture ASSESSMENT: Patient has difficulty initiating tasks possibly related to increased time to process and coordinate movements.. Patient difficulty attending to task however with increased time and simple commands he is able to carryover to task. Patient performs best with less cueing and allowed time to process instruction. CONTACT LENS TECHNICIAN observed and RN participated. Staff instructed and able to carryover simple cues providing patient reassurance with slow calm manner. PLAN: 1-2x/day, 7 days/week x 1 week. Plan of care has been reviewed with the FINANCE INTERN providing the service under Physical Therapy direction. Initiate Physical Therapy intervention for strengthening, bed mobility, transfers, gait, stairs, balance training, use of assistive device. TREATMENT CODE/TIME: 52910/ 1750?1805 DISCHARGE RECOMMENDATION: SNF
[2024-07-09] MEDS: Lidocaine 5% Patch 1 PATCH TP (18:36)
[2024-07-09] MEDS: Tamsulosin 0.4 MG CAPCR 0.8 MG PO (20:03)
[2024-07-09] MEDS: Normal Saline Flush 10 ML SYR IVP (20:03)
[2024-07-09] MEDS: Acetaminophen 325 MG TAB PO (20:03)
[2024-07-09] MEDS: QUEtiapine 25 MG TAB PO (21:39)
[2024-07-09] MEDS: Metoprolol 12.5 MG TAB PO (23:56)
[2024-07-10] VITALS (7 sets, daily range): BP systolic 110–174; BP diastolic 66–104; PULSE 78–110; RESP 17–18; TEMP 36.8–37.1; O2SAT 92–95
[2024-07-10] MEDS: Normal Saline 1,000 ML 100 ML IV ×3 (01:37→23:32)
[2024-07-10] MEDS: Lidocaine Patch Removal 1 EACH TP (06:07)
[2024-07-10 07:11] LABS: Abs Immature Grans 0.02 10^3/uL (0.0-0.06); Absolute Basophil Count 0.02 10^3/uL (0.0-0.2); Absolute Eosinophil Count 0.05 10^3/uL (0.0-0.7); Absolute Lymphocyte Count 1.06 10^3/uL (1.2-3.4); Absolute Monocyte Count 0.51 10^3/uL (0.1-0.8); Absolute Neutrophil Count 4.36 10^3/uL (1.2-6.7); Basophils % 0.3 %; Eosinophils % 0.8 %; HCT 36.4 % (40.0-50.0); HGB 12.3 g/dL (13.5-17.5); Immature Grans % 0.3 %; Lymphocytes % 17.6 %; MCH 29.9 pg (27.0-33.0); MCHC 33.8 % (32.0-36.0); MCV 89 fL (80-95); Monocytes % 8.5 %; Neutrophils % 72.5 %; Platelet Count 142 10^3/uL (130-400); RBC 4.11 10^6/uL (4.36-5.78); RDW 12.5 % (11.8-14.1); RDW-SD 40.7 fL; WBC 6.02 10^3/uL (4.4-10.8)
[2024-07-10 07:38] LABS: ALT 12 U/L (16-63); AST 14 U/L (15-37); Albumin 3.1 g/dL (3.4-5.0); Alkaline Phosphatase 76 U/L (46-116); Anion Gap 6.7 mmol/L (3-11); BUN 23 mg/dL (7-18); Bilirubin, Total 0.76 mg/dL (0.2-1.0); CO2 26.3 mmol/L (21.0-32.0); CREATININE 1.3 mg/dL (0.70-1.30); Calcium 9.5 mg/dL (8.5-10.1); Chloride 110 mmol/L (98-107); Estimated GFR 55.19 (mL/min/1.73m2); Glucose 181 mg/dL (74-106); Potassium 4.1 mmol/L (3.5-5.1); Sodium 143 mmol/L (136-145); Total Protein 6.1 g/dL (6.4-8.2)
[2024-07-10] MEDS: Ferrous Sulfate 325 MG TAB PO (09:57)
[2024-07-10] MEDS: Normal Saline Flush 10 ML SYR IVP ×2 (09:58→13:03)
[2024-07-10] MEDS: Apixaban 5 MG TAB PO (09:58)
[2024-07-10] MEDS: Metoprolol 12.5 MG TAB PO ×2 (09:58→21:41)
[2024-07-10] MEDS: Acetaminophen 325 MG TAB PO ×2 (10:11→14:27)
--- NOTE | 2024-07-10 11:51 | PTTR_ITS ---
PT Notes Visit Reasons: Failure to Thrive Physical Therapy Inpatient Initial Evaluation Date: 07/10/2024 Precautions: Fall. Standard. Activity as tolerated. Impaired safety awareness. Subjective: More confused compared to when he was first seen on 07/08/2023. Appeared very apprehensive of getting up out of bed. Fearful and anxious of falling. Kirsten and step daughter Kaylie present in room and triend to assist with encouraging patient to participate in therapy. Objective: General Observation: Resting in bed. Kirsten and stepdaughter Kaylie in room throughout session. PT Kirsten and GORAN Montero came in alf through the treatmenr to assist for safety. Mental Status: Alert and oriented only to person. Single-step commands need to be repeated 2-3x before execution. Easily distractible. High anxiety over new environment and new caregivers. New onset intermittent muscle twitching of B UE/LE. Pain: Grimaces and winced whne L upper lateral chest and L posterior upper back was held onto by PT during transfer Vital Signs: Closely monitored by nursing staff Bed Mobility/Transfers: Maximal verbal/tactile/visual cueing provided for use of B hands as needed for support, movement sequence, AD management, and posture to reduce fall risk and minimize pain report Supine to sit with minimal assist of 2 with HOB at 30 degrees Sit to stand with minimal assist of 3, took a while to finally stand up due to confusion and fearfulness/anxiety over falling/getting out of bed Stand to sit with minimal assist of 3, took a while to finally stand up due to confusion and fearfulness/anxiety over falling/getting out of bed Gait: Small discontinuous sidesteps and step backs onto reclining chair with PT maneuvering front-wheeled walker to lead patient towards bedside recliner. Minimal assist of 3 with maximal cueing for safe transfer, AD management, and sit down onto transfer chair. Trip took awhile as patient was highly confused and distractible. No LOB. Minimal shortness of breath. Anxiety apparent only dampened by several glimpses to Kirsten. Balance: Static Sitting: Fair Dynamic Sitting: Poor Static Standing: Fair Dynamic Standing: Poor Assessment: More confused today than day of evaluation at ED on 07/08/2024 due to new environment and new multiple caregivers, exacerbated by increased soreness on the L chest where he may have fallen onto at home. Needed assistance by PT Kirsten and OPHTHALMOLOGY SURGICAL TECHNICIAN Kylah for maximal cueing/redirection for safety and movement sequence during transfer and short in-rrom ambulation. Goals: Patient was admitted under observation level of care at the [facility] unit for continued functional mobility training to decrease fall risk. Will work on achieving the following goals while on admission 1-2x/day for 7 days for 2 weeks: Goals X1 week 1. Supine-Sit stand by assist 2. Sit-Supine stand by assist 3. Sit-Stand stand by assist 4. Stand-Sit stand by assist 5. Bed-Chair stand by assist 6. Chair-Bed stand by assist 7. Stand by assist gait on level surface with use of least restrictive device for at least 300 feet without report of pain nor dyspnea Plan of Care/Treatment Plan: Patient will highly benefit from skilled physical therapy services including functional mobility training, bed mobility/transfer training, gait and balance training, therapeutic exercises, therapeutic activity, caregiver/staff/family education and training 1x/day, 7 days/week x 1 week. Plan of care has been reviewed with the CHEMISTS providing the service under Physical Therapy direction. Initiate Physical Therapy intervention for strengthening, bed mobility, transfers, gait, stairs, balance training, use of assistive device. DISCHARGE RECOMMENDATIONS: [] Home with no services [] Home with services [specify] [] Home with outpatient PT [] [] SNF for continued rehabilitation [] [] Snf Care [] [] SNF versus LTC based on ability to participate and progress [] [X] Patient requires constant supervision/continuous verbal cueing for all ADL performance due to cognitive status/impaired safety awareness/lack of executive functioning skills in a supervised setting. SNF vs LTC vs AFC TREATMENT CODE/TIME: 05574 x 30 minutes for 2 units (11:51?12:22).
--- NOTE | 2024-07-10 13:21 | CHAPLAIN ---
Leonard was sleeping when I visited. I spoke with his Kirsten and stepdaughter Kaylie, both [employer] employees. Kirsten said she is waiting to talk with Belinda Ricks NP, from Urology about a medicine Leonard is taking that might be preventing him from being accepted at intermediate care facility. His dementia has gotten significantly worse in recent weeks according to CM notes. I offered drinks and food to Kirsten and Kaylie.
[2024-07-10] MEDS: Polyethylene Glycol 3350 17 GM PACKET PO (13:28)
[2024-07-10] MEDS: Docusate Sodium 100 MG CAP PO (13:28)
--- NOTE | 2024-07-10 14:15 | W.NUTRFU ---
Date of service: 07/10/24 Time of Service: 14:15 Nutrition Note NOTE: pt admitted for Afib with PMH significant for alzheimers dementia, HLD, HTN, CKD4 (with current GFR 55), Prostate cancer. also has history of DMII/hyperglycemia as evidenced by consistent elevated A1C - 5.7 in 2021 and as high as 7.7 in 2018. no diabetes meds at home. FAsting >170 the last 3 mornings.no fingersticks on order. Total protein and albumin labs low today at 6.1/3.1 respectively. Comfort measures noted - no agressive nutrition intervention planned at this time Time Spent in Nutritional Counseling and Treatment: 0
--- NOTE | 2024-07-10 14:22 | W.PM.PROGNOT ---
Date of Service Date of service: 07/10/24 Time of Service: 14:22 Assessment and Plan Assessment and plan (1) 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 -B12, folate, CK and TSH all WNL -likely natural evolution of his underlying disease process. -appreciate PT consultation, working on possible DC to [facility] (2) Hyperlipidemia: Status: Acute Assessment and plan: -Patient clearly not on any antilipid medications (3) Paroxysmal atrial fibrillation: Status: Acute Assessment and plan: -Pt did have an episode of afib which resolved spontaneously so I am diagnosing him with PAF. -Will start on anticoagulantas his Has-Bled score is 1 for age only. -Pt does have recent falls but the question is are the falls related to underlying cardiac arrhythmias or from another cause. -I will start on eliquis 5 mg po bid. -HR elevated again overnight 07/09-07/10, started on lopressor PO 12.5mg BID, will continue (4) Essential hypertension: Status: Acute Assessment and plan: -Patient is returning to over 86 he does take Lasix 20 mg daily. (5) CKD stage G3b/A1, GFR 30-44 and albumin creatinine ratio <30 mg/g: Status: Acute Assessment and plan: BUN to creatinine ratio is currently 33/1.5 which is actually improved GFR from when he was here June 2021. (6) Prostate cancer: Status: Chronic Assessment and plan: Patient seen by Dr. Salgado is currently getting Lupron with what looks like good effect. Subjective Subjective Interval history since last seen: Patient pleasant at this time, does not have any complaints or concerns at this time. Exam Narrative Exam Narrative: Elderly gentleman laying in bed in no acute distress, awake, alert, oriented to person only, heart regular rate rhythm, lungs, auscultation bilaterally, abdomen soft, nontender, nondistended Objective Last Vital Signs Temp 98.7 F 07/10/24 13:29 Pulse 78 07/10/24 13:29 Resp 18 07/10/24 13:29 BP 110/93 H 07/10/24 13:29 Pulse Ox 92 07/10/24 13:29 Laboratory Results - last 24 hr 07/10/24 06:15 WBC 6.02 RBC 4.11 L Hgb 12.3 L Hct 36.4 L MCV 89 D MCH 29.9 MCHC 33.8 RDW 12.5 Plt Count 142 MPV 11.0 Immature Gran % 0.3 Neutrophils % 72.5 Lymphocytes % 17.6 Monocytes % 8.5 Eosinophils % 0.8 Basophils % 0.3 Nucleated RBC % 0.0 Absolute Neutrophils 4.36 Absolute Lymphocytes 1.06 L Absolute Monocytes 0.51 Absolute Eosinophils 0.05 Absolute Basophils 0.02 Sodium 143 Potassium 4.1 Chloride 110 H Carbon Dioxide 26.3 Anion Gap 6.7 BUN 23 H Creatinine 1.3 Est GFR (CKD-EPI 2020) 55.19 Glucose 181 H Calcium 9.5 Total Bilirubin 0.76 AST 14 L ALT 12 L Alkaline Phosphatase 76 Total Protein 6.1 L Albumin 3.1 L TSH 1.60 Time Spent with Patient Time Spent with Patient: >50 minutes Time was spent: preparing to see the patient(eg.review tests), obtaining and/or reviewing separately otained hiistory, ordering medications,tests, procedures, referring, communicating with other health student career development specialist, indepentently interpreting results, counseling the patient and care coordination
--- NOTE | 2024-07-10 14:27 | PCNE_ITS ---
Date of service: 07/10/24 Time of Service: 14:27 History of Present Illness History of Present Illness Chief Complaint: Falls and worsening dementia Narrative: Addison is an 83-year-old man who has had several years of dementia. Generally he is pretty good-natured and although needs monitoring, is generally able to ambulate etc. He had fallen repeatedly at home. He was brought to the emergency room. CT scan of head and labs were done. Was reassuring but he was unable to walk. He was admitted for observation. During his hospitalization he has been amicable except for some very brief agitation. He did have a episode of atrial fibrillation and was started on Eliquis. He still is having difficulty ambulating and per took 3 people to get him from the bed to the commode. I came to see Addison and his Kirstne. He was sitting in a hospital chair doing a activity cloth booklet. He said he was fixing the table. He was very pleasant, but did not know where he was, could not identify his , and could not respond when I asked him how he was feeling. He did smile. Consults Consult date: 07/10/24 Requesting physician: Clarke Porter Assessment and Plan Assessment and plan (1) Paroxysmal atrial fibrillation: Status: Acute (2) Prostate cancer: Status: Chronic (3) Alzheimer's type dementia with late onset without behavioral disturbance: Status: Acute (4) ACP (advance care planning): Status: Acute Assessment and plan: I spoke to Kirsten regarding several issues. The hope is that he will be able to go to a group home. There was some discussion with [facility]. Care management is working on this. Regarding his prostate cancer?he is on Lupron. Both his Kirsten and his son Pato agreed to stop this. Belinda Alfaro NP had been in to see Kirsten earlier and spoke to Kirsten about the futility of continuing Lupron given his advanced dementia. Paroxysmal atrial fibrillation?by auscultation he appears to be in sinus rhythm. His Kirsten is very concerned that should he fall on anticoagulation he could have a very bad outcome of brain bleed. She would like him to be off this medication due to possible ill effects. I did talk with his son Pato who also agreed that it is better to move in the direction of comfort measures only rather than to continue on the Eliquis. Unfortunately placement is the major issue here. Care management is working on this. Hopefully he can be in a safe environment in the near future. Due to his frequent falls, advancing dementia, his is not able to care for him at home. His son Pato and I spoke on the phone and Pato is in complete agreement with Kirsten regarding Addison's care. Updated the hospitalist team. Addison has a wonderful demeanor. When I returned to his room, he did call his by name which made Kirsten very happy. 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 Essential hypertension (Acute 02/11/13) Hyperlipidemia (Acute 08/18/13) Medical History Rash and nonspecific skin eruption PSA elevation Nail disorder Unintended weight loss Hx of type 2 diabetes mellitus Low serum vitamin B12 Dysphagia (08/20/14) intermittent for years [facility] [place] eval, neg EGD and Ba swallow Low back pain (02/11/13) lumbar laminectomy 1959' Surgical History History of lumbar laminectomy (08/20/14) Status post rotator cuff repair Colonoscopy - MAC 07/17/14 Family History FAMILY HISTORY Essential hypertension Personal history of malignant neoplasm MELANOMA Cerebral infarction Cerebral artery occlusion Mother Essential hypertension Stroke Skin cancer Father Essential hypertension Asthma Sister , 72 Breast cancer Brother No problems noted. Maternal Grandfather Alcohol abuse Heart disease Paternal Grandfather Alcohol abuse Maternal Grandmother Diabetes Heart disease Paternal Grandmother No problems noted. Son No problems noted. Son No problems noted. Son No problems noted. 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 Pets and animals: Yes Pets and animals: cat(s) and dog(s) Sexually active: No Do you think of yourself as: straight/heterosexual Current gender identity: male What is your relationship status?: How often do you talk on the phone with friends or family?: once per week How often do you get together with friends or relatives?: once per week How often do you attend yarsanism or faith services?: 4 or more times per year Do you belong to any clubs or organized social groups?: no Panel score (0-1 are the most socially isolated patients): 2 What type of physical activity do you participate in: weight lifting Duration: < 15 minutes/day Frequency: 5-6 times per week Johana/Confucianism: Uatsdin Special johana needs: No Seatbelt use: always Drive intox or ride w/intox trackless trolley driver: No Do you feel safe at home: Yes Do you feel safe in your relationship?: Yes Exam Narrative Exam Narrative: Sitting in a chair being occupied by a activity booklet. Answered questions but many times they were short answers and he really did not seem to comprehend the question or understand what to say. His heart was regular. It was rate controlled. Lungs he did not cooperate with the examination . he did breathe fairly deeply without rales or wheezes. He smiled and was very pleasant. I did not try to get him out of his chair due to his problems with falls. Results Last Vital Signs Temp 98.7 F 07/10/24 13:29 Pulse 78 07/10/24 13:29 Resp 18 07/10/24 13:29 BP 110/93 H 07/10/24 13:29 Pulse Ox 92 07/10/24 13:29 Labs 07/10/24 06:15 07/10/24 06:15 Labs: Laboratory Results - last 24 hr 07/10/24 06:15 WBC 6.02 RBC 4.11 L Hgb 12.3 L Hct 36.4 L MCV 89 D MCH 29.9 MCHC 33.8 RDW 12.5 Plt Count 142 MPV 11.0 Immature Gran % 0.3 Neutrophils % 72.5 Lymphocytes % 17.6 Monocytes % 8.5 Eosinophils % 0.8 Basophils % 0.3 Nucleated RBC % 0.0 Absolute Neutrophils 4.36 Absolute Lymphocytes 1.06 L Absolute Monocytes 0.51 Absolute Eosinophils 0.05 Absolute Basophils 0.02 Sodium 143 Potassium 4.1 Chloride 110 H Carbon Dioxide 26.3 Anion Gap 6.7 BUN 23 H Creatinine 1.3 Est GFR (CKD-EPI 2020) 55.19 Glucose 181 H Calcium 9.5 Total Bilirubin 0.76 AST 14 L ALT 12 L Alkaline Phosphatase 76 Total Protein 6.1 L Albumin 3.1 L TSH 1.[address] scan - chest: report reviewed (MPRESSION: No acute abnormality.) Additional studies: Head CT - normal Time Spent Time Spent with Patient Time Spent(min): 62
--- NOTE | 2024-07-10 14:34 | SP_ITS ---
Date of service: 07/10/24 Time of Service: 14:00 Subjective Clinical (Bedside) Swallow Evaluation Speech Language Pathology Referred by: Dr Porter Referral Type: Clinical Swallow Evaluation Reason for Referral/HPI: Leonard Stevens is an 83 yo male adm 07/08/24 with AMS. Nato has a history of Alzheimer's dementia. Per notes and discussion with nursing/PT, patient has demonstrated notable decline in ambulation and mental status since admission. REGISTRATION CLERK referral placed secondary to concern with pocketing/congested cough after meals. REGISTRATION CLERK IMPRESSIONS & RECOMMENDATIONS: Nato was seen today for a non-instrumental swallow evaluation with PO snack. Per his , no baseline dysphagia prior to admission though he does have missing dentition due to misplaced/lost lower plate. Patient observed to take appropriate sized bites/sips with prolonged mastication. No coughing, throat clearing, or change in vocal quality appreciated. No evidence of pocketing. Despite WFL mechanical swallow function, patient at heightened risk for aspiration-related illness in the setting of cognitive dysphagia/severe confusion. Thus, recommend strict aspiration precautions as outlined below. FURTHER REGISTRATION CLERK SERVICES: Patient to be followed while on unit. Upon Discharge, TBD Diet Recommendations: SOLIDS: L6 Soft Bite Sized LIQUIDS: Thin MEDICATIONS: Crushed in puree SUPERVISION: 1:1 close supervision with meals STRATEGIES: - Upright in a chair for meals as able, or bolt upright 90 degrees in bed - Check for oral pocketing after meals - Support small bites/sips - Oral care BID, encourage physical mobility - Only do PO when awake/alert SUBJECTIVE: Patient received alert/awake, confused, able to respond with automatic pleasantries, otherwise speech unintelligible Pain Reported? None reported Baseline Swallow Function: denies swallowing difficulty prior to admission and eats a regular diet at baseline. PO Trials Assessed: IDDSI 0 Thin Liquids (Via straw) IDDSI 4 Puree Solid (Pudding) IDDSI 7EC Easy to Chew Solid (Fig Covarrubias) Medications administered by RN (Crushed in pudding) Oral Mechanism Examination: Dentition is WFL, missing lower and upper dentition. Oral mucosa is WFL. Unable to assess cranial nerves due to confusion. Oral Phase Findings: WFL Prolonged oral phase No pocketing Pharyngeal Phase Findings: WFL Single swallow per bite/sip No coughing/throat clearing/change in vocal quality ASSESSMENT: Further REGISTRATION CLERK Services indicated. Patient to be followed while on unit. Recommendation at Discharge: To be determined Suggested Referrals: N/A Recommended Procedures: N/A Education Provided to: Nursing/Family Topics Addressed: REGISTRATION CLERK findings/recommendations/aspiration precautions PLAN: Frequency: 1-2x/week for 1-2 weeks Goals: Correction Goals: Patient will remain free from aspiration-related illness, malnutrition, and dehydration. Short Term Goals: Patient will tolerate L6 Soft Bite Sized Diet and Thin liquids without overt s/s aspiration across 2/2 visits. REGISTRATION CLERK CPT Code: 66150 Clinical Swallowing Evaluation TOTAL TIME: 25 Minutes [id number]
[2024-07-10] MEDS: OLANZapine 2.5 MG TAB PO (17:21)
[2024-07-10] MEDS: Lidocaine 5% Patch 1 PATCH TP (17:38)
--- NOTE | 2024-07-10 18:13 | CMPROGNOTE_ITS ---
Date of service: 07/10/24 Time of Service: 18:13 Care Management Progress Note Progress Note Text Progress Note Text: Nato was sleeping when CM met with him; his , Kirsten, and step daughter, Kaylie were in the room visiting. CM sent a referral to [facility], with the intention of skilled rehab using the ACO waiver. He was declined due to an expensive medication, Lupron. Kirsten met with palliative care, and she decided to stop Lupron; CM relayed this information to admissions at [facility]. Nato woke up near the end of the meeting with his , and was in good spirits; he was smiling and very happy to see Kirsten. CM will continue to follow. Discharge Potential Discharge Needs: Other (SNF) Anticipated Barriers to Discharge: Bed availability Patient/Family Education Needs: Review discharge instructions, discuss Ask Me Three Transportation: EMS Plan: Nato's discharge plan is unclear at this time. He may transfer to SNF for short term rehab, if eligible, utilizing the ACO waiver. CM confirmed that he is active on the ACO list; the closest facility is [facility]. If he is not accepted for short term rehab, he will either return home with increased services vs SNF for penitentiary care vs community group home. Palliative care has been consulted. He will follow up with his PCP and discharge plan of care, and will likely require EMS transport due to his dementia diagnosis. CM will continue to follow. Social Determinants of Health Screening Social Determinants of Health last assessed: 07/10/24 Will the Patient Participate in the Screening?: Yes Do you worry about having a steady place to live?: no Problems where you live: no known problems In the past 12 months, have you had to go without electric, gas, oil or water in your home?: no Have you or anyone in your house had to go without enough food to eat?: no Has lack of transportation kept you from medical appointments or from doing things needed for daily living?: no Has anyone in your life made you feel unsafe or unsupported?: no How hard is it for you to pay for the very basics like food, housing, medical care, and heating? Would you say it is:: Somewhat hard Do you want help finding or keeping work or a job?: I do not need or want help If for any reason you need help with day-to-day activities such as bathing, preparing meals, shopping, managing finances, etc., do you get the help you need?: I need a lot more help How often do you feel lonely or isolated from those around you?: Sometimes Do you speak a language other than Serbian at home?: No Does the patient want assistance with any of the above?: Yes Social Determinants of Health Comments(SDOH Details): provided answers Health Related Social Needs Health related social needs: problems related to housing/economic circumstances (Z59.89), problems with daily activities (Z73.9) and feeling lonely/isolated (Z60.8)
[2024-07-10] MEDS: Tamsulosin 0.4 MG CAPCR 0.8 MG PO (21:41)
[2024-07-11 00:54] VITALS: BP 170/82; PULSE 79; RESP 20; TEMP 36.8; O2SAT 93
[2024-07-11 03:54] VITALS: BP 181/80; PULSE 108; RESP 20; TEMP 37.9; O2SAT 90
[2024-07-11 05:03] LABS: Abs Immature Grans 0.03 10^3/uL (0.0-0.06); Absolute Basophil Count 0.03 10^3/uL (0.0-0.2); Absolute Eosinophil Count 0.02 10^3/uL (0.0-0.7); Absolute Lymphocyte Count 0.71 10^3/uL (1.2-3.4); Absolute Monocyte Count 0.62 10^3/uL (0.1-0.8); Absolute Neutrophil Count 7.17 10^3/uL (1.2-6.7); Basophils % 0.3 %; Eosinophils % 0.2 %; HCT 36.7 % (40.0-50.0); HGB 12.4 g/dL (13.5-17.5); Immature Grans % 0.3 %; Lymphocytes % 8.3 %; MCHC 33.8 % (32.0-36.0); MCV 89 fL (80-95); MPV 10.1 fL (8.0-11.0); Monocytes % 7.2 %; Neutrophils % 83.7 %; Platelet Count 146 10^3/uL (130-400); RBC 4.13 10^6/uL (4.36-5.78); RDW 12.4 % (11.8-14.1); RDW-SD 40.4 fL; WBC 8.58 10^3/uL (4.4-10.8)
[2024-07-11 05:11] LABS: Anion Gap 7.1 mmol/L (3-11); BUN 24 mg/dL (7-18); CO2 27.9 mmol/L (21.0-32.0); CREATININE 1.3 mg/dL (0.70-1.30); Calcium 9.7 mg/dL (8.5-10.1); Chloride 106 mmol/L (98-107); Estimated GFR 55.19 (mL/min/1.73m2); Glucose 211 mg/dL (74-106); Potassium 4.1 mmol/L (3.5-5.1); Sodium 141 mmol/L (136-145)
[2024-07-11] MEDS: Lidocaine Patch Removal 1 EACH TP (06:22)
[2024-07-11 08:28] VITALS: BP 173/92; PULSE 90; RESP 19; TEMP 36.5; O2SAT 91
[2024-07-11] MEDS: Ferrous Sulfate 325 MG TAB PO (08:59)
[2024-07-11] MEDS: Metoprolol 12.5 MG TAB PO (08:59)
--- NOTE | 2024-07-11 09:22 | PT.INNT ---
PT Notes Visit Reasons: Failure to Thrive Patient in deep sleep, unable to participate. He has been unresponsive and unable to rouse since intake of Zyprexa per Nurse Ela. Per palliative care meeting yesterday, family is considering comfort measures if status remains. Hold PT this morning, recheck patient in the afternoon to determine appropriateness of PT..
[2024-07-11 10:17] VITALS: BP 167/91
[2024-07-11 14:22] VITALS: BP 178/92
[2024-07-11] MEDS: Normal Saline 1,000 ML 100 ML IV (14:23)
[2024-07-11] MEDS: MORPHine Oral Solution 10 MG/5 ML CUP PO (15:21)
--- NOTE | 2024-07-11 16:01 | CHAPLAIN ---
Nato was placed on comfort measures this afternoon. His , Kirsten, stepdaugther Corrie and Kirsten's sister were in the room when I visited. I offered a prayer with the family. We got a iPad to play hymns and ordered a food cart. I will continue to visit.
--- NOTE | 2024-07-11 16:18 | PDOC.CMPRO ---
Date of service: 07/11/24 Time of Service: 16:18 Care Management Progress Note Progress Note Text Progress Note Text: Nato was sleeping when CM met with him; his breathing appeared labored. Per report, he was given a small dose of medication for yesterday evening, and he has not been arousable today. His , Kirsten, and her sister were in the room visiting. CM discussed discharge planning considerations with Kirsten; CM has been communicating with admissions for [facility], who is considering him for admission. Kirsten expressed concern about Nato's breathing patterns, and his mental status decline; CM notified MD about her concerns. After MD visited with Nato and his family, the decision was made to transition Nato to comfort measures. A comfort cart was ordered for the family. He will likely remain at [facility] for end of life care. CM will continue to follow. Discharge Potential Discharge Needs: Other (end of life care) Plan: Leonard transitioned to comfort measures today, and will likely remain at [facility] for end of life care. A comfort cart/refreshment cart has been ordered for the family. CM will continue to follow and support Nato and his family during this difficult time with end of life and/or final arrangement considerations. Social Determinants of Health Screening Social Determinants of Health last assessed: 07/11/24 Will the Patient Participate in the Screening?: Yes Do you worry about having a steady place to live?: no Problems where you live: no known problems In the past 12 months, have you had to go without electric, gas, oil or water in your home?: no Have you or anyone in your house had to go without enough food to eat?: no Has lack of transportation kept you from medical appointments or from doing things needed for daily living?: no Has anyone in your life made you feel unsafe or unsupported?: no How hard is it for you to pay for the very basics like food, housing, medical care, and heating? Would you say it is:: Somewhat hard Do you want help finding or keeping work or a job?: I do not need or want help If for any reason you need help with day-to-day activities such as bathing, preparing meals, shopping, managing finances, etc., do you get the help you need?: I need a lot more help How often do you feel lonely or isolated from those around you?: Sometimes Do you speak a language other than Persian at home?: No Does the patient want assistance with any of the above?: Yes Social Determinants of Health Comments(SDOH Details): provided answers Health Related Social Needs Health related social needs: problems related to housing/economic circumstances (Z59.89), problems with daily activities (Z73.9) and feeling lonely/isolated (Z60.8)
--- NOTE | 2024-07-11 16:30 | PGE_ITS ---
Date of Service Date of service: 07/11/24 Time of Service: 16:30 Assessment and Plan Assessment and plan (1) Comfort measures only status: Status: Acute Assessment and plan: - Given patient's rapid decline that was experienced earlier in the afternoon 07/11/2024, with labored breathing, hypoxia, periods of apnea and audible rattling, decision was made with patient's , [id number], stepdaughter and his son who was over the phone to transition to comfort measures -Discontinue checking I's and O's, vital signs -As needed morphine, Ativan, Haldol for pain, anxiety, agitation -Cluster care, give family any additional support and any needed (2) 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 -B12, folate, CK and TSH all WNL -likely natural evolution of his underlying disease process. (3) Hyperlipidemia: Status: Acute Assessment and plan: -Patient clearly not on any antilipid medications (4) Essential hypertension: Status: Acute Assessment and plan: -Patient is returning to over 86 he does take Lasix 20 mg daily. (5) CKD stage G3b/A1, GFR 30-44 and albumin creatinine ratio <30 mg/g: Status: Acute Assessment and plan: BUN to creatinine ratio is currently 33/1.5 which is actually improved GFR from when he was here June 2021. Subjective Subjective Interval history since last seen: Later in the afternoon today patient experienced rapid decline and became significantly hypoxic with apneic breathing. Patient's , [id number], colette pdaughter who are at bedside, in combination with total discussion that was had with patient's son over the phone determined that given patient's rapid mental status decline would be the best interest for patient to transition to comfort measures only. Exam Narrative Exam Narrative: Elderly gentleman laying in bed currently in respiratory distress, rattled breath sounds, not responding to verbal stimuli at this time Objective Last Vital Signs Temp 97.7 F 07/11/24 08:28 Pulse 90 07/11/24 08:28 Resp 19 07/11/24 08:28 BP 178/92 H 07/11/24 14:22 Pulse Ox 91 L 07/11/24 08:28 Laboratory Results - last 24 hr 07/11/24 04:55 WBC 8.58 RBC 4.13 L Hgb 12.4 L Hct 36.7 L MCV 89 MCH 30.0 MCHC 33.8 RDW 12.4 Plt Count 146 MPV 10.1 Immature Gran % 0.3 Neutrophils % 83.7 Lymphocytes % 8.3 Monocytes % 7.2 Eosinophils % 0.2 Basophils % 0.3 Nucleated RBC % 0.0 Absolute Neutrophils 7.17 H Absolute Lymphocytes 0.71 L Absolute Monocytes 0.62 Absolute Eosinophils 0.02 Absolute Basophils 0.03 Sodium 141 Potassium 4.1 Chloride 106 Carbon Dioxide 27.9 Anion Gap 7.1 BUN 24 H Creatinine 1.3 Est GFR (CKD-EPI 2020) 55.19 Glucose 211 H Calcium 9.7 Time Spent with Patient Time Spent with Patient: >50 minutes Time was spent: preparing to see the patient(eg.review tests), obtaining and/or reviewing separately otained hiistory, ordering medications,tests, procedures, referring, communicating with other health care program director, indepentently interpreting results, counseling the patient and care coordination
[2024-07-11] MEDS: LORazepam 2 MG/ML VIAL IV/SC ×2 (17:01→23:00)
[2024-07-11] MEDS: Lidocaine 5% Patch 1 PATCH TP (17:01)
[2024-07-11] MEDS: Normal Saline Flush 10 ML SYR IVP ×4 (17:09→22:42)
--- NOTE | 2024-07-11 17:10 | NUR.NOTE ---
Nursing Note: Pt's family member requested nursing give pt more morphine, unable to give at this time d/t timing. Offered lorazepam as pt has been twitching like he is anxious, accepted and administered. Will monitor.
[2024-07-11] MEDS: Hyoscyamine 0.125 MG SL/ORAL/CHEW SL (18:28)
[2024-07-11] MEDS: Scopolamine 1 MG/3 DAYS PATCH TD (18:28)
[2024-07-11] MEDS: MORPHine 2 MG/ML SYR IVP ×3 (18:29→22:42)
--- NOTE | 2024-07-11 18:36 | NUR.NOTE ---
Nursing Note: Dr. Vincent has been in pt's room with family discussing pt's care. Gave PRNs at her request. Pt's breathing difficulty has eased and the noisy breathing is not so loud. Family is more at ease now.
[2024-07-12] MEDS: MORPHine 2 MG/ML SYR IVP ×12 (00:35→22:21)
[2024-07-12] MEDS: Normal Saline Flush 10 ML SYR IVP ×8 (00:36→20:10)
[2024-07-12] MEDS: LORazepam 2 MG/ML VIAL IV/SC ×2 (05:51→09:46)
--- NOTE | 2024-07-12 06:28 | PCPN_ITS ---
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 I have asked nursing to request scopolamine patch and/or hyoscyamine to help with the upper respiratory gurgling. This has been done His is very concerned that the family will come back on her (there is absolutely no sign that this would happen) if he dies before they see him. She has been reluctant to use morphine despite obvious pain. His and I have known each other for a long time. I was the one to write the comfort orders on her first as he was dying. I asked, and the on-call hospitalist agreed and wrote orders for morphine to be given IV 5 mg every 2 hours as needed. First dose was given when I was in the room. I am concerned that his is holding back in the hopes that Addison is alive tomorrow when his biological family gathers. A comfort cart is in the room. The family is surrounding Kirsten. She has gotten many phone calls. Her sister is in the room along with [id number]. Her daughter is taking care of her dogs. She plans to sleep in the room and nursing was kind enough to get her a recliner and blankets. She knows the Addison is dying. I do think that she is more comfortable administering pain medication as needed after our visit. He was not comfortable when I walked in the room but he was becoming more comfortable when I left Addendum: Called Med Surg Sat AM. He has received multiple doses overnight of medicati ons. I will see him today, but I recommend he be started on a morphine drip if appropriate. Subjective Subjective Interval history since last seen: Addison is lying in bed. His family is at the bedside. Over the last 24 hours Addison has become extremely somnolent. He has been advanced to comfort care. He is unaware that I have come into the room. His , Kirsten, is hoping his children are able to make it prior to his . Some have not seen him for years. She is very concerned that they did not be kept informed of their fathers condition. I myself spoke to one of the sons who was very informed about his condition and very much wanted Addison to be comfortable and not to try to prolong his life. Exam Narrative Exam Narrative: Addison is lying in bed, breathing through an open mouth. His breaths are between 30 and 35/min. His forehead is furloughed. He has upper respiratory congestion and is gurgling. He does not look comfortable. Objective Last Vital Signs Temp 97.7 F 07/11/24 08:28 Pulse 90 07/11/24 08:28 Resp 19 07/11/24 08:28 BP 178/92 H 07/11/24 14:22 Pulse Ox 91 L 07/11/24 08:28
[2024-07-12] MEDS: Lidocaine Patch Removal 1 EACH TP (10:16)
--- NOTE | 2024-07-12 13:53 | PGE_ITS ---
Date of Service Date of service: 07/12/24 Time of Service: 13:53 Assessment and Plan Assessment and plan (1) Comfort measures only status: Status: Acute Assessment and plan: - Given patient's rapid decline that was experienced earlier in the afternoon 07/11/2024, with labored breathing, hypoxia, periods of apnea and audible rattling, decision was made with patient's , [id number], stepdaughter and his son who was over the phone to transition to comfort measures -Discontinue checking I's and O's, vital signs -scheduled 2mg IV morphine for pain -As needed Ativan, Haldol for anxiety, agitation -scopolamine patch, hyoscyamine -Cluster care, give family any additional support and any needed (2) 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 -B12, folate, CK and TSH all WNL -likely natural evolution of his underlying disease process. (3) Hyperlipidemia: Status: Acute Assessment and plan: -Patient clearly not on any antilipid medications (4) Essential hypertension: Status: Acute Assessment and plan: -Patient is returning to over 86 he does take Lasix 20 mg daily. (5) CKD stage G3b/A1, GFR 30-44 and albumin creatinine ratio <30 mg/g: Status: Acute Assessment and plan: BUN to creatinine ratio is currently 33/1.5 which is actually improved GFR from when he was here June 2021. Subjective Subjective Interval history since last seen: Continue weaning oxygen patient unable to get prior to flight, discussed with his and she has no complaints or concerns at this time. Exam Narrative Exam Narrative: Elderly gentleman laying in bed currently in respiratory distress, rattled breath sounds, not responding to verbal stimuli at this time Objective Last Vital Signs Temp 97.7 F 07/11/24 08:28 Pulse 90 07/11/24 08:28 Resp 19 07/11/24 08:28 BP 178/92 H 07/11/24 14:22 Pulse Ox 91 L 07/11/24 08:28 Time Spent with Patient Time Spent with Patient: >50 minutes Time was spent: preparing to see the patient(eg.review tests), obtaining and/or reviewing separately otained hiistory, ordering medications,tests, procedures, referring, communicating with other health childcare director, indepentently interpreting results, counseling the patient and care coordination
--- NOTE | 2024-07-12 17:24 | W.PALPGNOTE ---
Date of service: 07/12/24 Time of Service: 12:15 Assessment and Plan Assessment and plan (1) Comfort measures only status: Status: Acute (2) ACP (advance care planning): Status: Acute (3) Alzheimer's type dementia with late onset without behavioral disturbance: Status: Acute Assessment and plan: End stage dementia . Appears to be actively dying Instructed the family on mouth care. He appeared not to like the mouth care Comfortable presently. Recommend starting morphine drip if he becomes agitated or appears to be in pain Family by the bedside. They asked questions which I answered Subjective Subjective Interval history since last seen: Pt unresponsive Overnight there was some agitation Family by the bedside Exam Narrative Exam Narrative: Pt is lying in bed, tachypnic and unresponsive. Lips and mouth were dry. Extremitiesstill warn and pink, not cyanotic Objective Last Vital Signs Temp 97.7 F 07/11/24 08:28 Pulse 90 07/11/24 08:28 Resp 19 07/11/24 08:28 BP 178/92 H 07/11/24 14:22 Pulse Ox 91 L 07/11/24 08:28
[2024-07-12] MEDS: Lidocaine 5% Patch 1 PATCH TP (18:28)
[2024-07-13] MEDS: MORPHine 2 MG/ML SYR IVP ×13 (00:13→21:50)
[2024-07-13] MEDS: Normal Saline Flush 10 ML SYR IVP ×13 (04:16→21:51)
[2024-07-13] MEDS: Lidocaine Patch Removal 1 EACH TP (06:22)
--- NOTE | 2024-07-13 11:44 | PGE_ITS ---
Date of Service Date of service: 07/13/24 Time of Service: 11:44 Assessment and Plan Assessment and plan (1) Comfort measures only status: Status: Acute Assessment and plan: - Given patient's rapid decline that was experienced earlier in the afternoon 07/11/2024, with labored breathing, hypoxia, periods of apnea and audible rattling, decision was made with patient's , [id number], stepdaughter and his son who was over the phone to transition to comfort measures -Discontinue checking I's and O's, vital signs -scheduled 2mg IV morphine for pain -As needed Ativan, Haldol for anxiety, agitation -scopolamine patch, hyoscyamine -Cluster care, give family any additional support and any needed (2) 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 -B12, folate, CK and TSH all WNL -likely natural evolution of his underlying disease process. (3) Hyperlipidemia: Status: Acute Assessment and plan: -Patient clearly not on any antilipid medications (4) Essential hypertension: Status: Acute Assessment and plan: -Patient is returning to over 86 he does take Lasix 20 mg daily. (5) CKD stage G3b/A1, GFR 30-44 and albumin creatinine ratio <30 mg/g: Status: Acute Assessment and plan: BUN to creatinine ratio is currently 33/1.5 which is actually improved GFR from when he was here June 2021. Subjective Subjective Interval history since last seen: Patient appears more comfortable as compared to previous status. Exam Narrative Exam Narrative: Elderly gentleman laying in bed no acute distress, periods of apnea lasting up to 5 seconds noted, not responsive to verbal stimuli Objective Last Vital Signs Temp 97.7 F 07/11/24 08:28 Pulse 90 07/11/24 08:28 Resp 19 07/11/24 08:28 BP 178/92 H 07/11/24 14:22 Pulse Ox 91 L 07/11/24 08:28 Time Spent with Patient Time Spent with Patient: >50 minutes Time was spent: preparing to see the patient(eg.review tests), obtaining and/or reviewing separately otained hiistory, ordering medications,tests, procedures, referring, communicating with other health career technical counselor, indepentently interpreting results, counseling the patient and care coordination
[2024-07-13] MEDS: Glycopyrrolate 0.2 MG/1 ML VIAL IVP (13:04)
[2024-07-13] MEDS: LORazepam 2 MG/ML VIAL IV/SC ×3 (13:04→18:54)
[2024-07-13] MEDS: MORPHine 4 MG/ML SYR 5 MG IVP (17:09)
[2024-07-13] MEDS: Lidocaine 5% Patch 1 PATCH TP (18:26)
--- NOTE | 2024-07-13 19:30 | W.PALPGNOTE ---
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 Family is very very happy about his care. They have noticed that he is more uncomfortable since he has been repositioned. He did receive some Ativan approximately half hour ago and morphine about an hour and a half ago. Requested that he have an additional dose of morphine 5 mg IV. Continues to be a waiting game. Family has now come to see him. He continues to have his family by the bedside. Discussed his care with family. Answered questions. and [id number] plan to sleeppenny jin Discussed care with Ambrosio. He is doing a wonderful job caring for Addison Subjective Subjective Interval history since last seen: Addison is lying in the bed. His family is surrounding him. His children were able to see him. is concerned that he is uncomfortable Exam Narrative Exam Narrative: Addison is tachypneic. He looks warm. He continues to make some urine. He is unresponsive. Objective Last Vital Signs Temp 97.7 F 07/11/24 08:28 Pulse 90 07/11/24 08:28 Resp 19 07/11/24 08:28 BP 178/92 H 07/11/24 14:22 Pulse Ox 91 L 07/11/24 08:28
[2024-07-13 23:00] VITALS: RESP 34
[2024-07-14 02:53] VITALS: RESP 20
[2024-07-14] MEDS: Lidocaine Patch Removal 1 EACH TP (04:45)
--- NOTE | 2024-07-14 06:21 | W.PM.DDS ---
Date of service: 07/14/24 Time of Service: 06:21 Discharge Plan Disposition Patient Disposition: Discharge Details Reason For Visit: Failure to Thrive Admit Date/Time: 07/08/24 13:13 Admit Provider: Clarke Porter Attending Provider: Clarke Porter Primary Care Provider: Jake Pritchett Hospital Course Hospital Course: Patient is an 83 year old male with dementia, admitted 07/08/24 with failure to thrive and frequent falling; it was felt that this represented progression of underlying dementia. On hospital day 2 patient had episode of AF and was started on E;liquis, along with low does Metoprolol for rate control. On hospital day 4 patient developed acute respiratory distress and through consultation with family and palliative care was transitioned to care directed solely towards comfort. Patient was treated with combination of Morphine and Ativan with good effect. On the cmm programmer of hospital day 7 patient peacefully, with family at side. Home Meds and New Rx's Prescriptions: No Action ferrous sulfate 325 mg (65 mg iron) tablet 325 mg PO DAILY (DME) blood sugar diagnostic Strip 1 ea Miscellaneous DAILY Qty: 100 3RF Rx Instructions: test once/day (DME) blood-glucose meter [OneTouch Ultra2 Meter] Kit See Rx Instructions .ROUTE .MEDSUPPLY Qty: 1 0RF Rx Instructions: test once/day (DME) lancets [OneTouch Delica Lancets] 33 gauge misc 1 ea Miscellaneous DAILY Qty: 100 3RF Rx Instructions: test once/day tamsulosin 0.4 mg capsule 0.8 mg PO QHS Qty: 180 4RF diphenoxylate-atropine [Lomotil] 2.5-0.025 mg tablet 1 tab PO QID PRN (Reason: diarrhea) Qty: 120 4RF donepezil 10 mg tablet 10 mg PO HS furosemide 20 mg tablet 20 mg PO QAM Patient Comments: TAKE ONE TABLET BY MOUTH EVERY MORNING Discharge Data Discharge Date/Time-TO BE ENTERED AT DEPARTURE: 07/14/24 03:03 Discharge Comment: Discharge Sum: Prov Provider Consults: 07/08/24 09:09 Physical Therapy Consult [CONS] Routine Consulting Provider: Roly Perdomo,Ashely Priority: Urgent Comment: Difficulty ambulating 07/08/24 09:13 Care Management Consult [CONS] Routine Consulting Provider: Care Management Consultation Status:: Contact made by MD Clarification:: One time opinion Reason for consult:: Falling at home. Physical therapy consult pending. 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
--- NOTE | 2024-07-14 06:27 | W.PM.DS.N ---
Date of service: 07/14/24 Time of Service: 06:27 DS: Diagnosis Discharge Diagnosis (1) Comfort measures only status: Status: Acute (2) ACP (advance care planning): Status: Acute (3) Alzheimer's type dementia with late onset without behavioral disturbance: Status: Acute Discharge Plan Disposition Patient Disposition: Discharge Details Reason For Visit: Failure to Thrive Admit Date/Time: 07/08/24 13:13 Admit Provider: Clarke Porter Attending Provider: Clarke Porter Primary Care Provider: Jake Pritchett Hospital Course Hospital Course: Patient is an 83 year old male with dementia, admitted 07/08/24 with failure to thrive and frequent falling; it was felt that this represented progression of underlying dementia. On hospital day 2 patient had episode of AF and was started on E;liquis, along with low does Metoprolol for rate control. On hospital day 4 patient developed acute respiratory distress and through consultation with family and palliative care was transitioned to care directed solely towards comfort. Patient was treated with combination of Morphine and Ativan with good effect. On the lay out helper of hospital day 7 patient peacefully, with family at side. Discharge Data Discharge Date/Time-TO BE ENTERED AT DEPARTURE: 07/14/24 03:03 DS: Summary Time Spent with Patient providing and/or coordinating discharge services: Less than 30 minutes Status at Discharge Functional status at discharge: bed bound () Overall status at discharge: other () Mental Status: other () Speech and Movement: other () Mood: other () Affect: other () Quality:SDOH Health Related Social Needs: Health related social needs problems related to housing/economic circumstances (Z59.89), problems with daily activities (Z73.9), feeling lonely/isolated (Z60.8) Exam Psych Mental Status: other () Speech and Movement: other () Mood: other () Affect: other () DS: Data Vitals/I&O Vitals and I&O: Vital Signs Temperature 36.5 C 07/11/24 08:28 Temperature Source Temporal Artery Scan 07/11/24 08:28 Pulse 90 07/11/24 08:28 Pulse Rhythm Regular 07/08/24 15:06 Pulse Strength Normal 07/08/24 09:11 Pulse 66 07/08/24 10:03 Respiratory Rate 20 07/14/24 02:53 Respiratory Effort Normal 07/08/24 15:06 Respiratory Depth Normal 07/08/24 15:06 Respiratory Pattern Normal 07/08/24 15:06 Blood Pressure 178/92 H 07/11/24 14:22 Blood Pressure Mean 112 07/08/24 10:01 Blood Pressure Position Supine 07/08/24 07:55 Pulse Oximetry 91 L 07/11/24 08:28 Oxygen Delivery Method Room Air 07/11/24 08:28 Oxygen Flow Rate 0 07/11/24 08:28 Pain Level 0 07/13/24 12:11 Comment Pt having more frequent apneic periods. 07/14/24 02:53 Intake & Output 07/13/24 07/13/24 07/14/24 11:59 23:59 11:59 Intake Total 0 / 0 Output Total 800 / 1250 450 / 1250 200 / 200 Balance -800 / -1250 -450 / -1250 -200 / -200 Intake: IV 0 / 0 Output: Urine 800 / 1250 450 / 1250 200 / 200 Other: Urine Color Straw Light Jenny Urine Appearance Clear Cloudy Cloudy Sediment Sediment Urine Odor None Stool Size Smear Stool Characteristics Soft PFSH All Active Problems (Updated 07/11/24 @ 16:32 by Joselo Hernadez MD) Comfort measures only status (Acute) ACP (advance care planning) (Acute) Paroxysmal atrial fibrillation (Acute) Fatigue (Acute) Edema of right lower extremity (Acute) Prostate cancer (Chronic) Hyperlipidemia (Acute 08/18/13) Essential hypertension (Acute 02/11/13) 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 CKD stage G3b/A1, GFR 30-44 and albumin creatinine ratio <30 mg/g (Acute) Urinary incontinence (Acute) Nail dystrophy (Acute) Corns and callosities (Acute) Medical History Rash and nonspecific skin eruption PSA elevation Nail disorder Unintended weight loss Hx of type 2 diabetes mellitus Low serum vitamin B12 Dysphagia (08/20/14) intermittent for [place] [facility] [place] and Ba swallow Low back pain (02/11/13) lumbar laminectomy 1960's Surgical History History of lumbar laminectomy (08/20/14) Status post rotator cuff repair Colonoscopy - MAC 07/17/14 Family History FAMILY HISTORY Essential hypertension Personal history of malignant neoplasm MELANOMA Cerebral infarction Cerebral artery occlusion Mother Essential hypertension Stroke Skin cancer Father Essential hypertension Asthma Sister , 72 Breast cancer Brother No problems noted. Maternal Grandfather Alcohol abuse Heart disease Paternal Grandfather Alcohol abuse Maternal Grandmother Diabetes Heart disease Paternal Grandmother No problems noted. Son No problems noted. Son No problems noted. Son No problems noted. 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 Pets and animals: Yes Pets and animals: cat(s) and dog(s) Sexually active: No Do you think of yourself as: straight/heterosexual Current gender identity: male What is your relationship status?: How often do you talk on the phone with friends or family?: once per week How often do you get together with friends or relatives?: once per week How often do you attend buddhist or moravian services?: 4 or more times per year Do you belong to any clubs or organized social groups?: no Panel score (0-1 are the most socially isolated patients): 2 What type of physical activity do you participate in: weight lifting Duration: < 15 minutes/day Frequency: 5-6 times per week Johana/Alevism: Religion Special johana needs: No Seatbelt use: always Drive intox or ride w/intox pile driver operator: No Do you feel safe at home: Yes Do you feel safe in your relationship?: Yes Time Spent with Patient Time Spent with Patient: <45 minutes (n/a) Time was spent: preparing to see the patient(eg.review tests), obtaining and/or reviewing separately otained hiistory, ordering medications,tests, procedures, referring, communicating with other health day care director, indepentently interpreting results, counseling the patient, care coordination and other (n/a)
== END 2024-07-14 03:03 | disposition expired | DRG 57 ==
LOC: ER 08:48 → MS 16:11
PROVIDERS: Family Medicine; Admitting Provider Hospitalist; Emergency Provider Emergency Medicine; PCP Nurse Practitioner Family; Visit Provider Hospitalist
DX: G30.1 Alzheimer's disease with late onset (principal); F02.80 Dementia in other diseases classified elsewhere, unspecified severity, without behavioral disturbance, psychotic disturbance, mood disturbance, and anxiety; Z51.5 Encounter for palliative care; E78.5 Hyperlipidemia, unspecified; N18.32 Chronic kidney disease, stage 3b; I12.9 Hypertensive chronic kidney disease with stage 1 through stage 4 chronic kidney disease, or unspecified chronic kidney disease; I48.0 Paroxysmal atrial fibrillation; C61 Malignant neoplasm of prostate; Z79.899 Other long term (current) drug therapy; R00.1 Bradycardia, unspecified; W19.XXXA Unspecified fall, initial encounter; R60.0 Localized edema; R32 Unspecified urinary incontinence; R53.83 Other fatigue; R09.02 Hypoxemia; R06.03 Acute respiratory distress
CPT/HCPCS: 00123; 36415; 51701; 71250; 80048; 80053; 82550; 92610; 93005; 96372; 96374; 97162; 97530; 99285; J1650; 70450; 71045; 80320; 80329; 81003; 81015; 82140; 82607; 82746; 83735; 84443; 84484; 85025; 93010; 99222; 99232; 99233; J0131; J1596; J2060; J2270; J3490